=== PATIENT | female | born 1945 | race Caucasian/White ===

== ENCOUNTER 2018-12-14 00:13 | Day surgery (SDC) | payer MEDICARE, OTHER ==
[~2018-12-14 00:13] MED LIST: CETI5 PO; DOCU100 PO; FERR325 PO; FLUSAL5005 IH; LEVSOD125 PO; LISI20 PO; METF500 PO; NIFE30ER PO; OMEP40CA12 PO; OXYACE5T PO; RXONDA4ODT MM; RXTRAM50 PO; TIOT18 IH; TIOT18 INH; TRAM50 PO; WARF4 PO; ZITIA; ZOLAIR
[2018-12-14] MEDS ORDERED: Synthroid112 MCG PO (14:11)
[2018-12-14] MEDS ORDERED: METFORMIN HCL1000 MG PO (14:12)
[2018-12-14] MEDS ORDERED: Xolair150 MG SC (14:14)
[2018-12-14] MEDS ORDERED: GABA300 PO (14:16)
== END 2018-12-14 14:25 | disposition home or self-care (01) ==
LOC: ATC 00:13
DX: J44.9 Chronic obstructive pulmonary disease, unspecified (principal); Z87.891 Personal history of nicotine dependence; E78.5 Hyperlipidemia, unspecified; M19.90 Unspecified osteoarthritis, unspecified site; E03.9 Hypothyroidism, unspecified; G47.33 Obstructive sleep apnea (adult) (pediatric); Z79.899 Other long term (current) drug therapy; Z79.82 Long term (current) use of aspirin
CPT/HCPCS: 96372; J2357

== ENCOUNTER 2018-12-28 00:17 | Day surgery (SDC) | payer MEDICARE, OTHER ==
[~2018-12-28 00:17] MED LIST changes: +GABA300 PO; +METFORMIN HCL1000 MG PO; +Synthroid112 MCG PO; +Xolair150 MG SC
== END 2018-12-28 14:06 | disposition home or self-care (01) ==
LOC: ATC 00:17
DX: J44.9 Chronic obstructive pulmonary disease, unspecified (principal); G47.33 Obstructive sleep apnea (adult) (pediatric); E78.5 Hyperlipidemia, unspecified; E03.9 Hypothyroidism, unspecified; M19.90 Unspecified osteoarthritis, unspecified site; Z87.891 Personal history of nicotine dependence
CPT/HCPCS: 96372; J2357

== ENCOUNTER 2019-01-25 09:34 | Day surgery (SDC) | payer MEDICARE, OTHER | END 2019-01-25 23:59 | disposition home or self-care (01) | LOC: ATC 09:34 | DX: J44.9 Chronic obstructive pulmonary disease, unspecified (principal); G47.33 Obstructive sleep apnea (adult) (pediatric); E78.5 Hyperlipidemia, unspecified; E03.9 Hypothyroidism, unspecified; Z87.891 Personal history of nicotine dependence; Z99.89 Dependence on other enabling machines and devices; Z88.8 Allergy status to other drugs, medicaments and biological substances | CPT/HCPCS: 96372; J2357 ==

== ENCOUNTER 2019-02-08 00:07 | Day surgery (SDC) | payer MEDICARE, OTHER | END 2019-02-08 23:02 | disposition home or self-care (01) | LOC: ATC 00:07 | DX: J44.9 Chronic obstructive pulmonary disease, unspecified (principal); G47.33 Obstructive sleep apnea (adult) (pediatric); E03.9 Hypothyroidism, unspecified; E78.5 Hyperlipidemia, unspecified; Z87.891 Personal history of nicotine dependence; Z88.8 Allergy status to other drugs, medicaments and biological substances; Z79.899 Other long term (current) drug therapy; Z79.82 Long term (current) use of aspirin | CPT/HCPCS: 96372; J2357 ==

== ENCOUNTER 2019-02-22 13:27 | Day surgery (SDC) | payer MEDICARE, OTHER | END 2019-02-22 14:16 | disposition home or self-care (01) | LOC: ATC 13:27 | DX: J44.9 Chronic obstructive pulmonary disease, unspecified (principal); G47.33 Obstructive sleep apnea (adult) (pediatric); E78.5 Hyperlipidemia, unspecified; M19.90 Unspecified osteoarthritis, unspecified site; Z87.891 Personal history of nicotine dependence; Z88.8 Allergy status to other drugs, medicaments and biological substances | CPT/HCPCS: J2357 ==

== ENCOUNTER 2019-03-08 00:25 | Day surgery (SDC) | payer MEDICARE, OTHER | END 2019-03-08 11:50 | disposition home or self-care (01) | LOC: ATC 00:25 | DX: J44.9 Chronic obstructive pulmonary disease, unspecified (principal); G47.33 Obstructive sleep apnea (adult) (pediatric); E78.5 Hyperlipidemia, unspecified; E03.9 Hypothyroidism, unspecified; Z87.891 Personal history of nicotine dependence; Z99.89 Dependence on other enabling machines and devices; Z79.899 Other long term (current) drug therapy; Z79.84 Long term (current) use of oral hypoglycemic drugs; Z79.82 Long term (current) use of aspirin; Z88.8 Allergy status to other drugs, medicaments and biological substances | CPT/HCPCS: 96372; J2357 ==

== ENCOUNTER 2019-03-22 00:29 | Day surgery (SDC) | payer MEDICARE, OTHER ==
[2019-03-22] MEDS ORDERED: XOLAIR150 MG/1 M SL (09:38)
== END 2019-03-22 09:57 | disposition home or self-care (01) ==
LOC: ATC 00:29
DX: J44.9 Chronic obstructive pulmonary disease, unspecified (principal); E78.5 Hyperlipidemia, unspecified; J32.9 Chronic sinusitis, unspecified; Z87.891 Personal history of nicotine dependence; Z88.8 Allergy status to other drugs, medicaments and biological substances
CPT/HCPCS: 96372; J2357

== ENCOUNTER 2019-04-05 09:29 | Day surgery (SDC) | payer MEDICARE, OTHER ==
[~2019-04-05 09:29] MED LIST changes: +XOLAIR150 MG/1 M SL
== END 2019-04-05 09:52 | disposition home or self-care (01) ==
LOC: ATC 09:29
DX: J44.9 Chronic obstructive pulmonary disease, unspecified (principal); G47.33 Obstructive sleep apnea (adult) (pediatric); E78.5 Hyperlipidemia, unspecified; E03.9 Hypothyroidism, unspecified; Z87.891 Personal history of nicotine dependence; Z79.899 Other long term (current) drug therapy; Z79.84 Long term (current) use of oral hypoglycemic drugs; Z79.82 Long term (current) use of aspirin; Z88.8 Allergy status to other drugs, medicaments and biological substances
CPT/HCPCS: 96372; J2357

== ENCOUNTER 2019-04-25 00:12 | Day surgery (SDC) | payer MEDICARE, OTHER ==
[2019-04-25] MEDS ORDERED: MONT10T PO (11:59)
== END 2019-04-25 22:59 | disposition home or self-care (01) ==
LOC: ATC 00:12
DX: J44.9 Chronic obstructive pulmonary disease, unspecified (principal); E78.5 Hyperlipidemia, unspecified; J32.9 Chronic sinusitis, unspecified; M19.90 Unspecified osteoarthritis, unspecified site; E03.9 Hypothyroidism, unspecified; Z87.891 Personal history of nicotine dependence; Z88.8 Allergy status to other drugs, medicaments and biological substances
CPT/HCPCS: 96372; J2357

== ENCOUNTER → 2019-05-02 | Outpatient (CLI) | payer MEDICARE, OTHER ==
[~2019-05-02] MED LIST changes: +MONT10T PO
== END | disposition home or self-care (01) ==
LOC: LAB SHORT 19:19 → LAB EV 19:19
DX: N39.0 Urinary tract infection, site not specified (principal)
CPT/HCPCS: 87077; 87086; 87186

== ENCOUNTER 2019-05-09 00:11 | Day surgery (SDC) | payer MEDICARE, OTHER | END 2019-05-09 11:25 | disposition home or self-care (01) | LOC: ATC 00:11 | DX: J44.9 Chronic obstructive pulmonary disease, unspecified (principal); G47.30 Sleep apnea, unspecified; E78.5 Hyperlipidemia, unspecified; M19.90 Unspecified osteoarthritis, unspecified site; L93.0 Discoid lupus erythematosus; L40.9 Psoriasis, unspecified; E03.9 Hypothyroidism, unspecified; K75.81 Nonalcoholic steatohepatitis (NASH); R73.03 Prediabetes; Z87.891 Personal history of nicotine dependence; Z79.899 Other long term (current) drug therapy; Z79.84 Long term (current) use of oral hypoglycemic drugs; Z79.82 Long term (current) use of aspirin; Z88.8 Allergy status to other drugs, medicaments and biological substances | CPT/HCPCS: 96372; J2357 ==

== ENCOUNTER 2019-05-23 00:16 | Day surgery (SDC) | payer MEDICARE, OTHER | END 2019-05-23 11:24 | disposition home or self-care (01) | LOC: ATC 00:16 | DX: J44.9 Chronic obstructive pulmonary disease, unspecified (principal); E78.5 Hyperlipidemia, unspecified; J32.9 Chronic sinusitis, unspecified; Z87.891 Personal history of nicotine dependence | CPT/HCPCS: 96372; J2357 ==

== ENCOUNTER 2019-06-07 00:22 | Day surgery (SDC) | payer MEDICARE, OTHER ==
--- NOTE | 2019-06-12 11:35 | NUR ---
LATE ENTRY. VS WERE CHECKED, WNL, NOT DOCUMENTED. PT TOLERATED INJECTION WELL.
== END 2019-06-07 11:35 | disposition home or self-care (01) ==
LOC: ATC 00:22
DX: J44.9 Chronic obstructive pulmonary disease, unspecified (principal); G47.33 Obstructive sleep apnea (adult) (pediatric); E78.5 Hyperlipidemia, unspecified; E03.9 Hypothyroidism, unspecified; Z99.89 Dependence on other enabling machines and devices; Z87.891 Personal history of nicotine dependence; Z79.51 Long term (current) use of inhaled steroids; Z79.84 Long term (current) use of oral hypoglycemic drugs; Z79.82 Long term (current) use of aspirin; Z79.899 Other long term (current) drug therapy; Z88.8 Allergy status to other drugs, medicaments and biological substances
CPT/HCPCS: 96372; J2357

== ENCOUNTER 2019-06-21 00:17 | Day surgery (SDC) | payer MEDICARE, OTHER | END 2019-06-21 11:07 | disposition home or self-care (01) | LOC: ATC 00:17 | DX: J44.9 Chronic obstructive pulmonary disease, unspecified (principal); Z87.891 Personal history of nicotine dependence | CPT/HCPCS: 96372; J2357 ==

== ENCOUNTER 2019-07-04 00:21 | Day surgery (SDC) | payer MEDICARE, OTHER | END 2019-07-04 10:24 | disposition home or self-care (01) | LOC: ATC 00:21 | DX: J44.9 Chronic obstructive pulmonary disease, unspecified (principal); R73.03 Prediabetes; E78.5 Hyperlipidemia, unspecified; E03.9 Hypothyroidism, unspecified; G47.33 Obstructive sleep apnea (adult) (pediatric); Z99.89 Dependence on other enabling machines and devices; Z88.8 Allergy status to other drugs, medicaments and biological substances; Z87.891 Personal history of nicotine dependence; Z79.899 Other long term (current) drug therapy; Z79.84 Long term (current) use of oral hypoglycemic drugs; Z79.82 Long term (current) use of aspirin; Z79.51 Long term (current) use of inhaled steroids | CPT/HCPCS: 96372; J2357 ==

== ENCOUNTER 2019-07-18 00:08 | Day surgery (SDC) | payer MEDICARE, OTHER | END 2019-07-18 11:18 | disposition home or self-care (01) | LOC: ATC 00:08 | DX: J44.9 Chronic obstructive pulmonary disease, unspecified (principal); G47.33 Obstructive sleep apnea (adult) (pediatric); R73.03 Prediabetes; E03.9 Hypothyroidism, unspecified; E78.5 Hyperlipidemia, unspecified; Z87.891 Personal history of nicotine dependence; Z99.89 Dependence on other enabling machines and devices; Z79.52 Long term (current) use of systemic steroids; Z79.899 Other long term (current) drug therapy; Z79.82 Long term (current) use of aspirin; Z79.84 Long term (current) use of oral hypoglycemic drugs; Z88.8 Allergy status to other drugs, medicaments and biological substances | CPT/HCPCS: 96372; J2357 ==

== ENCOUNTER 2019-08-01 00:08 | Day surgery (SDC) | payer MEDICARE, OTHER | END 2019-08-01 11:37 | disposition home or self-care (01) | LOC: ATC 00:08 | DX: J44.9 Chronic obstructive pulmonary disease, unspecified (principal); E03.9 Hypothyroidism, unspecified; E78.5 Hyperlipidemia, unspecified; R73.03 Prediabetes; G47.33 Obstructive sleep apnea (adult) (pediatric); Z87.891 Personal history of nicotine dependence; Z99.89 Dependence on other enabling machines and devices; Z88.8 Allergy status to other drugs, medicaments and biological substances; Z79.899 Other long term (current) drug therapy; Z79.82 Long term (current) use of aspirin; Z79.84 Long term (current) use of oral hypoglycemic drugs | CPT/HCPCS: 96372; J2357 ==

== ENCOUNTER 2019-08-15 00:12 | Day surgery (SDC) | payer MEDICARE, OTHER | END 2019-08-15 10:52 | disposition home or self-care (01) | LOC: ATC 00:12 | DX: J44.9 Chronic obstructive pulmonary disease, unspecified (principal); G47.33 Obstructive sleep apnea (adult) (pediatric); E78.5 Hyperlipidemia, unspecified; M19.90 Unspecified osteoarthritis, unspecified site; E03.9 Hypothyroidism, unspecified; R73.03 Prediabetes; L93.0 Discoid lupus erythematosus; Z88.8 Allergy status to other drugs, medicaments and biological substances; Z87.891 Personal history of nicotine dependence; Z99.89 Dependence on other enabling machines and devices; Z79.51 Long term (current) use of inhaled steroids; Z79.84 Long term (current) use of oral hypoglycemic drugs; Z79.899 Other long term (current) drug therapy | CPT/HCPCS: 96372; J2357 ==

== ENCOUNTER 2019-08-29 00:29 | Day surgery (SDC) | payer MEDICARE, OTHER | END 2019-08-29 11:23 | disposition home or self-care (01) | LOC: ATC 00:29 | DX: J44.9 Chronic obstructive pulmonary disease, unspecified (principal); G47.33 Obstructive sleep apnea (adult) (pediatric); I10 Essential (primary) hypertension; R73.03 Prediabetes; E78.5 Hyperlipidemia, unspecified; M19.90 Unspecified osteoarthritis, unspecified site; E03.9 Hypothyroidism, unspecified; L93.0 Discoid lupus erythematosus; Z87.891 Personal history of nicotine dependence; Z99.89 Dependence on other enabling machines and devices; Z79.84 Long term (current) use of oral hypoglycemic drugs; Z79.82 Long term (current) use of aspirin; Z79.51 Long term (current) use of inhaled steroids; Z79.899 Other long term (current) drug therapy; Z88.8 Allergy status to other drugs, medicaments and biological substances | CPT/HCPCS: J2357 ==

== ENCOUNTER 2019-09-12 07:10 | Day surgery (SDC) | payer MEDICARE, OTHER | END 2019-09-12 11:23 | disposition home or self-care (01) | LOC: ATC 07:10 | DX: J44.9 Chronic obstructive pulmonary disease, unspecified (principal); G47.33 Obstructive sleep apnea (adult) (pediatric); E78.5 Hyperlipidemia, unspecified; Z87.891 Personal history of nicotine dependence; Z99.89 Dependence on other enabling machines and devices; Z79.51 Long term (current) use of inhaled steroids; Z79.899 Other long term (current) drug therapy; Z88.8 Allergy status to other drugs, medicaments and biological substances | CPT/HCPCS: 96372; J2357 ==

== ENCOUNTER 2019-09-26 00:06 | Day surgery (SDC) | payer MEDICARE, OTHER | END 2019-09-26 11:18 | disposition home or self-care (01) | LOC: ATC 00:06 | DX: J44.9 Chronic obstructive pulmonary disease, unspecified (principal); G47.33 Obstructive sleep apnea (adult) (pediatric); E78.5 Hyperlipidemia, unspecified; M19.90 Unspecified osteoarthritis, unspecified site; E03.9 Hypothyroidism, unspecified; R73.03 Prediabetes; Z87.891 Personal history of nicotine dependence; Z79.51 Long term (current) use of inhaled steroids; Z79.84 Long term (current) use of oral hypoglycemic drugs; Z79.82 Long term (current) use of aspirin; Z79.52 Long term (current) use of systemic steroids; Z79.899 Other long term (current) drug therapy; Z99.89 Dependence on other enabling machines and devices; Z90.710 Acquired absence of both cervix and uterus; Z88.8 Allergy status to other drugs, medicaments and biological substances | CPT/HCPCS: 96372; J2357 ==

== ENCOUNTER 2019-10-10 00:08 | Day surgery (SDC) | payer MEDICARE, OTHER | END 2019-10-10 11:02 | disposition home or self-care (01) | LOC: ATC 00:08 | DX: J44.9 Chronic obstructive pulmonary disease, unspecified (principal); E78.5 Hyperlipidemia, unspecified; E03.9 Hypothyroidism, unspecified; G47.33 Obstructive sleep apnea (adult) (pediatric); Z79.51 Long term (current) use of inhaled steroids; Z87.891 Personal history of nicotine dependence; Z79.52 Long term (current) use of systemic steroids; Z88.8 Allergy status to other drugs, medicaments and biological substances | CPT/HCPCS: 96372; J2357 ==

== ENCOUNTER 2019-10-24 00:11 | Day surgery (SDC) | payer MEDICARE, OTHER | END 2019-10-24 11:23 | disposition home or self-care (01) | LOC: ATC 00:11 | DX: J44.9 Chronic obstructive pulmonary disease, unspecified (principal); G47.33 Obstructive sleep apnea (adult) (pediatric); I10 Essential (primary) hypertension; E78.5 Hyperlipidemia, unspecified; M19.90 Unspecified osteoarthritis, unspecified site; E03.9 Hypothyroidism, unspecified; K75.81 Nonalcoholic steatohepatitis (NASH); R73.03 Prediabetes; K21.9 Gastro-esophageal reflux disease without esophagitis; L40.8 Other psoriasis; Z87.891 Personal history of nicotine dependence; Z79.51 Long term (current) use of inhaled steroids; Z79.52 Long term (current) use of systemic steroids; Z79.82 Long term (current) use of aspirin; Z79.84 Long term (current) use of oral hypoglycemic drugs; Z79.899 Other long term (current) drug therapy; Z88.8 Allergy status to other drugs, medicaments and biological substances | CPT/HCPCS: 96372; J2357 ==

== ENCOUNTER 2019-11-21 00:05 | Day surgery (SDC) | payer MEDICARE, OTHER | END 2019-11-21 11:16 | disposition home or self-care (01) | LOC: ATC 00:05 | DX: J44.9 Chronic obstructive pulmonary disease, unspecified (principal); I10 Essential (primary) hypertension; E78.5 Hyperlipidemia, unspecified; E03.9 Hypothyroidism, unspecified; Z87.891 Personal history of nicotine dependence; Z79.51 Long term (current) use of inhaled steroids; Z79.52 Long term (current) use of systemic steroids; E66.3 Overweight; K21.9 Gastro-esophageal reflux disease without esophagitis; Z79.899 Other long term (current) drug therapy; Z68.30 Body mass index [BMI] 30.0-30.9, adult | CPT/HCPCS: 96372; J2357 ==

== ENCOUNTER 2019-12-05 00:15 | Day surgery (SDC) | payer MEDICARE, OTHER | END 2019-12-05 11:07 | disposition home or self-care (01) | LOC: ATC 00:15 | DX: J44.9 Chronic obstructive pulmonary disease, unspecified (principal); I10 Essential (primary) hypertension; G47.33 Obstructive sleep apnea (adult) (pediatric); E78.5 Hyperlipidemia, unspecified; E03.9 Hypothyroidism, unspecified; K21.9 Gastro-esophageal reflux disease without esophagitis; Z87.891 Personal history of nicotine dependence; Z79.51 Long term (current) use of inhaled steroids; Z79.899 Other long term (current) drug therapy; Z88.8 Allergy status to other drugs, medicaments and biological substances | CPT/HCPCS: J2357 ==

== ENCOUNTER 2019-12-19 00:09 | Day surgery (SDC) | payer MEDICARE, OTHER | END 2019-12-19 11:07 | disposition home or self-care (01) | LOC: ATC 00:09 | DX: J44.9 Chronic obstructive pulmonary disease, unspecified (principal); G47.33 Obstructive sleep apnea (adult) (pediatric); I10 Essential (primary) hypertension; E78.5 Hyperlipidemia, unspecified; J32.9 Chronic sinusitis, unspecified; E03.9 Hypothyroidism, unspecified; Z87.891 Personal history of nicotine dependence; Z88.8 Allergy status to other drugs, medicaments and biological substances | CPT/HCPCS: 96372; J2357 ==

== ENCOUNTER 2020-01-02 00:40 | Day surgery (SDC) | payer MEDICARE, OTHER | END 2020-01-02 09:45 | disposition home or self-care (01) | LOC: ATC 00:40 | DX: J44.9 Chronic obstructive pulmonary disease, unspecified (principal); K21.9 Gastro-esophageal reflux disease without esophagitis; I10 Essential (primary) hypertension; E03.9 Hypothyroidism, unspecified; E66.3 Overweight; Z79.51 Long term (current) use of inhaled steroids; Z87.891 Personal history of nicotine dependence; Z99.89 Dependence on other enabling machines and devices; Z79.899 Other long term (current) drug therapy; Z88.8 Allergy status to other drugs, medicaments and biological substances; Z68.30 Body mass index [BMI] 30.0-30.9, adult | CPT/HCPCS: J2357 ==

== ENCOUNTER 2020-01-16 01:07 | Day surgery (SDC) | payer MEDICARE, OTHER | END 2020-01-16 10:33 | disposition home or self-care (01) | LOC: ATC 01:07 | DX: J44.9 Chronic obstructive pulmonary disease, unspecified (principal); K21.9 Gastro-esophageal reflux disease without esophagitis; Z79.899 Other long term (current) drug therapy; Z79.51 Long term (current) use of inhaled steroids; Z87.891 Personal history of nicotine dependence; E66.3 Overweight; G47.33 Obstructive sleep apnea (adult) (pediatric); Z68.30 Body mass index [BMI] 30.0-30.9, adult | CPT/HCPCS: J2357 ==

== ENCOUNTER 2020-01-30 00:03 | Day surgery (SDC) | payer MEDICARE, OTHER | END 2020-01-30 10:04 | disposition home or self-care (01) | LOC: ATC 00:03 | DX: J44.9 Chronic obstructive pulmonary disease, unspecified (principal); K21.9 Gastro-esophageal reflux disease without esophagitis; Z79.51 Long term (current) use of inhaled steroids; I10 Essential (primary) hypertension; E78.5 Hyperlipidemia, unspecified; E03.9 Hypothyroidism, unspecified; Z79.899 Other long term (current) drug therapy; Z87.891 Personal history of nicotine dependence; E66.3 Overweight; Z68.30 Body mass index [BMI] 30.0-30.9, adult | CPT/HCPCS: J2357 ==

== ENCOUNTER 2020-02-13 00:19 | Day surgery (SDC) | payer MEDICARE, OTHER | END 2020-02-13 10:52 | disposition home or self-care (01) | LOC: ATC 00:19 | DX: J44.9 Chronic obstructive pulmonary disease, unspecified (principal); K21.9 Gastro-esophageal reflux disease without esophagitis; E78.5 Hyperlipidemia, unspecified; E03.9 Hypothyroidism, unspecified; I10 Essential (primary) hypertension; E66.3 Overweight; Z68.30 Body mass index [BMI] 30.0-30.9, adult; Z87.891 Personal history of nicotine dependence; Z88.8 Allergy status to other drugs, medicaments and biological substances; Z79.899 Other long term (current) drug therapy; Z79.51 Long term (current) use of inhaled steroids | CPT/HCPCS: J2357 ==

== ENCOUNTER 2020-03-12 00:22 | Day surgery (SDC) | payer MEDICARE, OTHER | END 2020-03-12 10:59 | disposition home or self-care (01) | LOC: ATC 00:22 | DX: J44.9 Chronic obstructive pulmonary disease, unspecified (principal); I10 Essential (primary) hypertension; E78.5 Hyperlipidemia, unspecified; M19.90 Unspecified osteoarthritis, unspecified site; E03.9 Hypothyroidism, unspecified; Z79.899 Other long term (current) drug therapy | CPT/HCPCS: 96372; J2357 ==

== ENCOUNTER 2020-03-26 00:06 | Day surgery (SDC) | payer MEDICARE, OTHER | END 2020-03-26 10:48 | disposition home or self-care (01) | LOC: ATC 00:06 | DX: J44.9 Chronic obstructive pulmonary disease, unspecified (principal); I10 Essential (primary) hypertension; E03.9 Hypothyroidism, unspecified; E78.5 Hyperlipidemia, unspecified; E66.3 Overweight; K21.9 Gastro-esophageal reflux disease without esophagitis; G47.33 Obstructive sleep apnea (adult) (pediatric); Z87.891 Personal history of nicotine dependence; Z68.30 Body mass index [BMI] 30.0-30.9, adult; Z79.899 Other long term (current) drug therapy | CPT/HCPCS: 96372; J2357 ==

== ENCOUNTER 2020-04-16 00:08 | Day surgery (SDC) | payer MEDICARE, OTHER | END 2020-04-16 10:53 | disposition home or self-care (01) | LOC: ATC 00:08 | DX: J44.9 Chronic obstructive pulmonary disease, unspecified (principal); E11.621 Type 2 diabetes mellitus with foot ulcer; K21.9 Gastro-esophageal reflux disease without esophagitis; I10 Essential (primary) hypertension; E78.5 Hyperlipidemia, unspecified; E66.3 Overweight; G47.33 Obstructive sleep apnea (adult) (pediatric); Z87.891 Personal history of nicotine dependence; Z68.30 Body mass index [BMI] 30.0-30.9, adult; Z79.899 Other long term (current) drug therapy; Z79.82 Long term (current) use of aspirin; Z79.51 Long term (current) use of inhaled steroids; L97.509 Non-pressure chronic ulcer of other part of unspecified foot with unspecified severity | CPT/HCPCS: 96372; J2357 ==

== ENCOUNTER 2020-06-11 08:42 | Day surgery (SDC) | payer MEDICARE, OTHER ==
[~2020-06-11 08:42] MED LIST changes: -FLUSAL5005 IH; +FLUT1DIS8 INH; +OMEP20ER PO; -OMEP40CA12 PO
== END 2020-06-11 09:21 | disposition home or self-care (01) ==
LOC: ATC 08:42
DX: J44.9 Chronic obstructive pulmonary disease, unspecified (principal); J45.50 Severe persistent asthma, uncomplicated; K21.9 Gastro-esophageal reflux disease without esophagitis; I10 Essential (primary) hypertension; E78.5 Hyperlipidemia, unspecified; E03.9 Hypothyroidism, unspecified; G47.33 Obstructive sleep apnea (adult) (pediatric); Z79.899 Other long term (current) drug therapy; Z87.891 Personal history of nicotine dependence; Z79.82 Long term (current) use of aspirin
CPT/HCPCS: 96372; J2357

== ENCOUNTER 2020-06-25 00:40 | Day surgery (SDC) | payer MEDICARE, OTHER | END 2020-06-25 10:59 | disposition home or self-care (01) | LOC: ATC 00:40 | DX: J45.50 Severe persistent asthma, uncomplicated (principal); K21.9 Gastro-esophageal reflux disease without esophagitis; I10 Essential (primary) hypertension; E78.5 Hyperlipidemia, unspecified; E03.9 Hypothyroidism, unspecified; J44.9 Chronic obstructive pulmonary disease, unspecified; Z87.891 Personal history of nicotine dependence; Z88.8 Allergy status to other drugs, medicaments and biological substances | CPT/HCPCS: 96372; J2357 ==

== ENCOUNTER 2020-07-09 00:13 | Day surgery (SDC) | payer MEDICARE, OTHER | END 2020-07-09 10:15 | disposition home or self-care (01) | LOC: ATC 00:13 | DX: J45.50 Severe persistent asthma, uncomplicated (principal); J44.9 Chronic obstructive pulmonary disease, unspecified; I10 Essential (primary) hypertension; E78.5 Hyperlipidemia, unspecified; E03.9 Hypothyroidism, unspecified; Z87.891 Personal history of nicotine dependence; K21.9 Gastro-esophageal reflux disease without esophagitis; Z79.899 Other long term (current) drug therapy; Z79.82 Long term (current) use of aspirin | CPT/HCPCS: 96372; J1100; J1885; J2250; J2357; J2405; J2704; J3010 ==

== ENCOUNTER 2020-07-31 00:21 | Day surgery (SDC) | payer MEDICARE, OTHER | END 2020-07-31 10:00 | disposition home or self-care (01) | LOC: ATC 00:21 | DX: J45.50 Severe persistent asthma, uncomplicated (principal); J44.9 Chronic obstructive pulmonary disease, unspecified; K21.9 Gastro-esophageal reflux disease without esophagitis; G47.33 Obstructive sleep apnea (adult) (pediatric); M19.90 Unspecified osteoarthritis, unspecified site; L93.0 Discoid lupus erythematosus; L40.9 Psoriasis, unspecified; E03.9 Hypothyroidism, unspecified; R73.03 Prediabetes; E66.3 Overweight; Z68.29 Body mass index [BMI] 29.0-29.9, adult; Z79.51 Long term (current) use of inhaled steroids; Z79.899 Other long term (current) drug therapy; Z87.891 Personal history of nicotine dependence; Z88.8 Allergy status to other drugs, medicaments and biological substances | CPT/HCPCS: 96372; J2357 ==

== ENCOUNTER 2020-08-14 00:26 | Day surgery (SDC) | payer MEDICARE, OTHER | END 2020-08-14 10:41 | disposition home or self-care (01) | LOC: ATC 00:26 | DX: J45.50 Severe persistent asthma, uncomplicated (principal); J44.9 Chronic obstructive pulmonary disease, unspecified; I10 Essential (primary) hypertension; E78.5 Hyperlipidemia, unspecified; Z87.891 Personal history of nicotine dependence; Z79.899 Other long term (current) drug therapy; Z88.8 Allergy status to other drugs, medicaments and biological substances | CPT/HCPCS: 96372; J2357 ==

== ENCOUNTER 2020-09-11 00:19 | Day surgery (SDC) | payer MEDICARE, OTHER ==
[2020-09-11] MEDS ORDERED: Prinivil10 MG PO (10:14)
== END 2020-09-11 10:08 | disposition home or self-care (01) ==
LOC: ATC 00:19
DX: J44.9 Chronic obstructive pulmonary disease, unspecified (principal); J45.50 Severe persistent asthma, uncomplicated; K21.9 Gastro-esophageal reflux disease without esophagitis; M19.90 Unspecified osteoarthritis, unspecified site; E03.9 Hypothyroidism, unspecified; R73.03 Prediabetes; E78.5 Hyperlipidemia, unspecified; I10 Essential (primary) hypertension; G47.33 Obstructive sleep apnea (adult) (pediatric); E66.3 Overweight; Z68.29 Body mass index [BMI] 29.0-29.9, adult; Z87.81 Personal history of (healed) traumatic fracture; Z79.899 Other long term (current) drug therapy; Z88.8 Allergy status to other drugs, medicaments and biological substances; Z79.51 Long term (current) use of inhaled steroids
CPT/HCPCS: 96372; J2357

== ENCOUNTER 2020-09-25 00:07 | Day surgery (SDC) | payer MEDICARE, OTHER ==
[~2020-09-25 00:07] MED LIST changes: +Prinivil10 MG PO
== END 2020-09-25 10:36 | disposition home or self-care (01) ==
LOC: ATC 00:07
DX: J44.9 Chronic obstructive pulmonary disease, unspecified (principal); J45.50 Severe persistent asthma, uncomplicated; G47.33 Obstructive sleep apnea (adult) (pediatric); K21.9 Gastro-esophageal reflux disease without esophagitis; I10 Essential (primary) hypertension; E78.5 Hyperlipidemia, unspecified; M19.90 Unspecified osteoarthritis, unspecified site; E03.9 Hypothyroidism, unspecified; Z87.891 Personal history of nicotine dependence; Z88.8 Allergy status to other drugs, medicaments and biological substances
CPT/HCPCS: 96372; J2357

== ENCOUNTER 2020-10-09 00:25 | Day surgery (SDC) | payer MEDICARE, OTHER | END 2020-10-09 10:04 | disposition home or self-care (01) | LOC: ATC 00:25 | DX: J45.50 Severe persistent asthma, uncomplicated (principal); J44.9 Chronic obstructive pulmonary disease, unspecified; K21.9 Gastro-esophageal reflux disease without esophagitis; I10 Essential (primary) hypertension; E78.5 Hyperlipidemia, unspecified; J32.9 Chronic sinusitis, unspecified; M19.90 Unspecified osteoarthritis, unspecified site; E03.9 Hypothyroidism, unspecified; R73.03 Prediabetes; L93.0 Discoid lupus erythematosus; L40.9 Psoriasis, unspecified; G47.33 Obstructive sleep apnea (adult) (pediatric); E66.3 Overweight; Z68.29 Body mass index [BMI] 29.0-29.9, adult; Z79.899 Other long term (current) drug therapy; Z87.891 Personal history of nicotine dependence; Z88.8 Allergy status to other drugs, medicaments and biological substances; Z79.51 Long term (current) use of inhaled steroids | CPT/HCPCS: J2357 ==

== ENCOUNTER 2020-10-23 00:13 | Day surgery (SDC) | payer MEDICARE, OTHER ==
[~2020-10-23 00:13] MED LIST changes: +EUTHYROX88 MCG PO; -Synthroid112 MCG PO
== END 2020-10-23 10:28 | disposition home or self-care (01) ==
LOC: ATC 00:13
DX: J45.50 Severe persistent asthma, uncomplicated (principal); I10 Essential (primary) hypertension; E78.5 Hyperlipidemia, unspecified; M19.90 Unspecified osteoarthritis, unspecified site; E03.9 Hypothyroidism, unspecified; J44.9 Chronic obstructive pulmonary disease, unspecified; K21.9 Gastro-esophageal reflux disease without esophagitis; G47.33 Obstructive sleep apnea (adult) (pediatric); Z87.891 Personal history of nicotine dependence; Z88.8 Allergy status to other drugs, medicaments and biological substances; Z79.899 Other long term (current) drug therapy
CPT/HCPCS: 96372; J2357

== ENCOUNTER 2020-11-06 00:05 | Day surgery (SDC) | payer MEDICARE, OTHER | END 2020-11-06 10:21 | disposition home or self-care (01) | LOC: ATC 00:05 | DX: J44.9 Chronic obstructive pulmonary disease, unspecified (principal); J45.50 Severe persistent asthma, uncomplicated; I10 Essential (primary) hypertension; E78.5 Hyperlipidemia, unspecified; L93.0 Discoid lupus erythematosus; L40.8 Other psoriasis; G47.33 Obstructive sleep apnea (adult) (pediatric); E03.9 Hypothyroidism, unspecified; Z88.8 Allergy status to other drugs, medicaments and biological substances; Z87.891 Personal history of nicotine dependence | CPT/HCPCS: 96372; J2357 ==

== ENCOUNTER 2020-11-27 00:28 | Day surgery (SDC) | payer MEDICARE, OTHER | END 2020-11-27 10:16 | disposition home or self-care (01) | LOC: ATC 00:28 | DX: J44.9 Chronic obstructive pulmonary disease, unspecified (principal); J45.50 Severe persistent asthma, uncomplicated; I10 Essential (primary) hypertension; Z87.891 Personal history of nicotine dependence | CPT/HCPCS: 96372; J2357 ==

== ENCOUNTER 2020-12-11 00:05 | Day surgery (SDC) | payer MEDICARE, OTHER | END 2020-12-11 11:25 | disposition home or self-care (01) | LOC: ATC 00:05 | DX: J44.9 Chronic obstructive pulmonary disease, unspecified (principal); J45.50 Severe persistent asthma, uncomplicated; I10 Essential (primary) hypertension; Z87.891 Personal history of nicotine dependence | CPT/HCPCS: 96372; J2357 ==

== ENCOUNTER 2020-12-25 00:37 | Day surgery (SDC) | payer MEDICARE, OTHER | END 2020-12-25 11:15 | disposition home or self-care (01) | LOC: ATC 00:37 | DX: J45.50 Severe persistent asthma, uncomplicated (principal); J44.9 Chronic obstructive pulmonary disease, unspecified; I10 Essential (primary) hypertension; E78.5 Hyperlipidemia, unspecified; E03.9 Hypothyroidism, unspecified; R73.03 Prediabetes; K21.9 Gastro-esophageal reflux disease without esophagitis; Z87.891 Personal history of nicotine dependence; Z88.8 Allergy status to other drugs, medicaments and biological substances | CPT/HCPCS: 96372; J2357 ==

== ENCOUNTER 2021-01-08 00:14 | Day surgery (SDC) | payer MEDICARE, OTHER | END 2021-01-08 10:35 | disposition home or self-care (01) | LOC: ATC 00:14 | DX: J44.9 Chronic obstructive pulmonary disease, unspecified (principal); J45.50 Severe persistent asthma, uncomplicated; I10 Essential (primary) hypertension; L93.0 Discoid lupus erythematosus; E03.9 Hypothyroidism, unspecified; Z96.651 Presence of right artificial knee joint; Z87.891 Personal history of nicotine dependence; Z79.51 Long term (current) use of inhaled steroids; Z79.899 Other long term (current) drug therapy; Z88.8 Allergy status to other drugs, medicaments and biological substances | CPT/HCPCS: 96372; J2357 ==

== ENCOUNTER 2021-01-22 00:28 | Day surgery (SDC) | payer MEDICARE, OTHER ==
[~2021-01-22 00:28] MED LIST changes: -EUTHYROX88 MCG PO; +Synthroid112 MCG PO
[2021-01-22] MEDS ORDERED: GABA300 PO (10:18)
== END 2021-01-22 09:58 | disposition home or self-care (01) ==
LOC: ATC 00:28
DX: J45.50 Severe persistent asthma, uncomplicated (principal); K21.9 Gastro-esophageal reflux disease without esophagitis; G47.33 Obstructive sleep apnea (adult) (pediatric); J44.9 Chronic obstructive pulmonary disease, unspecified; I10 Essential (primary) hypertension; E78.5 Hyperlipidemia, unspecified; M19.90 Unspecified osteoarthritis, unspecified site; L93.0 Discoid lupus erythematosus; E03.9 Hypothyroidism, unspecified; Z87.440 Personal history of urinary (tract) infections; Z87.891 Personal history of nicotine dependence; Z88.8 Allergy status to other drugs, medicaments and biological substances
CPT/HCPCS: 96372; J2357

== ENCOUNTER 2021-02-20 03:29 | Day surgery (SDC) | payer MEDICARE, OTHER ==
[~2021-02-20 03:29] MED LIST changes: +EUTHYROX88 MCG PO; -Synthroid112 MCG PO
== END 2021-02-20 10:05 | disposition home or self-care (01) ==
LOC: ATC 03:29
DX: J44.9 Chronic obstructive pulmonary disease, unspecified (principal); J45.50 Severe persistent asthma, uncomplicated; I10 Essential (primary) hypertension; Z87.891 Personal history of nicotine dependence; Z88.8 Allergy status to other drugs, medicaments and biological substances; E03.9 Hypothyroidism, unspecified
CPT/HCPCS: 96372; J2357

== ENCOUNTER 2021-02-28 11:59 | Emergency (ER) | payer MEDICARE, OTHER ==
[~2021-02-28] VITALS: Ht 154.9 cm; Wt 80.3 kg
[2021-02-28] MEDS ORDERED: EZETIMIBE10 M6 PO (12:42)
[2021-02-28] MEDS ORDERED: METFORMIN HCL500 M3 PO (12:44)
[2021-02-28] MEDS ORDERED: CEPH500 PO (13:55)
== END 2021-02-28 14:20 | disposition home or self-care (01) ==
LOC: ER 11:59
DX: M79.89 Other specified soft tissue disorders (principal); R60.0 Localized edema; E11.9 Type 2 diabetes mellitus without complications; I10 Essential (primary) hypertension; Z88.8 Allergy status to other drugs, medicaments and biological substances; Z79.899 Other long term (current) drug therapy
CPT/HCPCS: 71260; 80053; 83880; 84484; 85025; 93005; 93010; 93971; 99285-25; Q9967

== ENCOUNTER 2021-03-05 04:58 | Day surgery (SDC) | payer MEDICARE, OTHER ==
[~2021-03-05 04:58] MED LIST changes: +CEPH500 PO; +EZETIMIBE10 M6 PO; +METFORMIN HCL500 M3 PO
== END 2021-03-05 09:45 | disposition home or self-care (01) ==
LOC: ATC 04:58
DX: J45.50 Severe persistent asthma, uncomplicated (principal); I10 Essential (primary) hypertension; E78.5 Hyperlipidemia, unspecified; E03.9 Hypothyroidism, unspecified; J44.9 Chronic obstructive pulmonary disease, unspecified; Z87.891 Personal history of nicotine dependence; Z88.8 Allergy status to other drugs, medicaments and biological substances
CPT/HCPCS: 96372; J2357

== ENCOUNTER 2021-03-19 00:08 | Day surgery (SDC) | payer MEDICARE, OTHER | END 2021-03-19 10:30 | disposition home or self-care (01) | LOC: ATC 00:08 | DX: J45.50 Severe persistent asthma, uncomplicated (principal); J44.9 Chronic obstructive pulmonary disease, unspecified; K21.9 Gastro-esophageal reflux disease without esophagitis; M19.90 Unspecified osteoarthritis, unspecified site; L93.0 Discoid lupus erythematosus; L40.9 Psoriasis, unspecified; Z87.891 Personal history of nicotine dependence | CPT/HCPCS: 96372; J2357 ==

== ENCOUNTER 2021-04-01 00:21 | Day surgery (SDC) | payer MEDICARE, OTHER | END 2021-04-01 10:24 | disposition home or self-care (01) | LOC: ATC 00:21 | DX: J44.9 Chronic obstructive pulmonary disease, unspecified (principal); J45.50 Severe persistent asthma, uncomplicated; I10 Essential (primary) hypertension; Z87.891 Personal history of nicotine dependence; Z88.8 Allergy status to other drugs, medicaments and biological substances | CPT/HCPCS: 96372; J2357 ==

== ENCOUNTER 2021-04-15 00:11 | Day surgery (SDC) | payer MEDICARE, OTHER | END 2021-04-15 09:59 | disposition home or self-care (01) | LOC: ATC 00:11 | DX: J45.50 Severe persistent asthma, uncomplicated (principal); J44.9 Chronic obstructive pulmonary disease, unspecified; G47.33 Obstructive sleep apnea (adult) (pediatric); K21.9 Gastro-esophageal reflux disease without esophagitis; I10 Essential (primary) hypertension; E78.5 Hyperlipidemia, unspecified; E03.9 Hypothyroidism, unspecified; Z87.891 Personal history of nicotine dependence; Z79.82 Long term (current) use of aspirin | CPT/HCPCS: J2357 ==

== ENCOUNTER 2021-05-14 01:37 | Day surgery (SDC) | payer MEDICARE, OTHER ==
[2021-05-14] MEDS ORDERED: XOLAIR150 MG/1 M SC (10:02)
[2021-05-14] MEDS ORDERED: Xolair150 MG SC (10:03)
== END 2021-05-14 10:00 | disposition home or self-care (01) ==
LOC: ATC 01:37
DX: J44.9 Chronic obstructive pulmonary disease, unspecified (principal); J45.50 Severe persistent asthma, uncomplicated; G47.33 Obstructive sleep apnea (adult) (pediatric); Z87.891 Personal history of nicotine dependence; K21.9 Gastro-esophageal reflux disease without esophagitis; Z79.82 Long term (current) use of aspirin
CPT/HCPCS: 96372; J2357

== ENCOUNTER 2021-05-29 00:19 | Day surgery (SDC) | payer MEDICARE, OTHER ==
[~2021-05-29 00:19] MED LIST changes: +XOLAIR150 MG/1 M SC
== END 2021-05-29 09:47 | disposition home or self-care (01) ==
LOC: ATC 00:19
DX: J45.50 Severe persistent asthma, uncomplicated (principal); G47.33 Obstructive sleep apnea (adult) (pediatric); J44.9 Chronic obstructive pulmonary disease, unspecified; K21.9 Gastro-esophageal reflux disease without esophagitis; Z87.891 Personal history of nicotine dependence; Z79.82 Long term (current) use of aspirin; Z79.899 Other long term (current) drug therapy
CPT/HCPCS: 96372; J2357

== ENCOUNTER 2021-06-12 02:06 | Day surgery (SDC) | payer MEDICARE, OTHER | END 2021-06-12 08:38 | disposition home or self-care (01) | LOC: ATC 02:06 | DX: J44.9 Chronic obstructive pulmonary disease, unspecified (principal); J45.50 Severe persistent asthma, uncomplicated; G47.33 Obstructive sleep apnea (adult) (pediatric); Z87.891 Personal history of nicotine dependence | CPT/HCPCS: 96372; J2357 ==

== ENCOUNTER 2021-06-26 00:49 | Day surgery (SDC) | payer MEDICARE, OTHER | END 2021-06-26 09:58 | disposition home or self-care (01) | LOC: ATC 00:49 | DX: J45.50 Severe persistent asthma, uncomplicated (principal) | CPT/HCPCS: 96372; J2357 ==

== ENCOUNTER 2021-07-10 02:20 | Day surgery (SDC) | payer MEDICARE, OTHER | END 2021-07-10 10:16 | disposition home or self-care (01) | LOC: ATC 02:20 | DX: J45.50 Severe persistent asthma, uncomplicated (principal); G47.33 Obstructive sleep apnea (adult) (pediatric); Z87.891 Personal history of nicotine dependence | CPT/HCPCS: 96372; J2357 ==

== ENCOUNTER 2021-07-24 04:20 | Day surgery (SDC) | payer MEDICARE, OTHER | END 2021-07-24 10:06 | disposition home or self-care (01) | LOC: ATC 04:20 | DX: J45.50 Severe persistent asthma, uncomplicated (principal) | CPT/HCPCS: 96372; J2357 ==

== ENCOUNTER 2021-10-11 19:41 | Inpatient (IN) | payer MEDICARE, OTHER ==
[~2021-10-11] VITALS: Ht 167.6 cm; Wt 83.7 kg
[2021-10-11 20:15] LABS: EOSINOPHILS PERCENT AUTO 1 % (0-6); RDW Coefficient Variation 13.9 % (11.7-14.2)
[2021-10-11 20:22] LABS: BASOPHILS ABSOLUTE AUTO 0.04 K/mm3 (0.00-0.23); BASOPHILS PERCENT AUTO 0 % (0-2); Hematocrit 42.9 % (33.0-51.0); IMMATURE GRAN ABSOLUTE AUTO 0.09 K/mm3 (0.00-0.10); IMMATURE GRAN PERCENT AUTO 1 % (0-1); LYMPHOCYTES ABSOLUTE AUTO 1.58 K/mm3 (0.84-5.20); LYMPHOCYTES PERCENT AUTO 17 % (21-46); MONOCYTES ABSOLUTE AUTO 0.31 K/mm3 (0.16-1.47); MONOCYTES PERCENT AUTO 3 % (4-13); Mean Corpuscular HGB 29.2 pg (26.0-34.0); Mean Corpuscular HGB Conc 32.6 g/dL (31.5-36.5); Mean Corpuscular Volume 90 fL (80-100); NEUTROPHILS ABSOLUTE AUTO 6.99 K/mm3 (1.96-9.15); NEUTROPHILS PERCENT AUTO 77 % (41-73); RDW Standard Deviation 45.8 fL (35.1-46.3); Red Blood Cell Count 4.79 M/mm3 (3.80-5.20); White Blood Cell Count 9.11 K/mm3 (4.00-11.30)
[2021-10-11 20:25] LABS: Acetaminophen, Random <2.0 ug/mL (10.0-30.0); Alanine Aminotransfer (ALT/SGP 121 U/L (12-78); Albumin, Blood 3.6 g/dL (3.4-5.0); Albumin/Globulin Ratio 1.1 (0.8-1.8); Alk Phos 96 U/L (50-136); Anion Gap 6 mmol/L (6-16); Aspartate Aminotrans (AST/SGOT 67 U/L (12-37); Bilirubin, Total 0.5 mg/dL (0.1-1.0); Blood Urea Nitrogen 20 mg/dL (8-24); Bun/Creatinine Ratio 23.3 (12.0-20.0); CO2, Blood 26 mmol/L (21-32); Calcium, Blood 9.2 mg/dL (8.5-10.1); Chloride, Blood 106 mmol/L (98-108); Creatinine, Blood 0.86 mg/dL (0.40-1.00); Globulin, Blood 3.3 g/dL (2.2-4.0); Glomerular Filtration Rate >60 (60-); Glucose, Blood 297 mg/dL (70-99); Mean Platelet Volume 10.4 fL (9.1-12.4); Platelet Count 224 K/mm3 (150-400); Salicylate <1.7 mg/dL (2.8-20.0); Sodium, Blood 138 mmol/L (136-145); Total Protein, Blood 6.9 g/dL (6.4-8.2)
[2021-10-11 21:12] LABS: Influenza A, PCR NEGATIVE (NEGATIVE); Influenza B, PCR NEGATIVE (NEGATIVE); Resp Syncytial Virus, PCR NEGATIVE (NEGATIVE); SARS-Cov-2 (COVID-19) PCR, MMC NEGATIVE (NEGATIVE)
[2021-10-11 21:17] LABS: Source, Urine Catheter
[2021-10-11] MEDS ORDERED: ATOR10 PO (21:17)
[2021-10-11] MEDS ORDERED: NEURONTIN300 MG PO (21:18)
[2021-10-11 21:20] LABS: Blood, Urine Neg (Neg); Glucose Qualitative, Urine Neg (Neg); Ketones, Urine Neg (Neg); Leukocyte Esterase, Urine Neg (Neg); Nitrite, Urine Neg (Neg); Protein, Urine 1+ (Neg); Urobilinogen, Urine 1+ (Normal)
[2021-10-11 21:29] LABS: Appearance, Urine Clear (Clear); Bilirubin, Urine 1+ (Neg); Color, Urine Yellow (P-Yellow)
[2021-10-11 22:10] LABS: U Amphetamine Screen Not Detected; U Barbituate Screen Not Detected; U Benzodiazapine Screen Not Detected; U Buprenorphine Screen Not Detected; U Cannabinoids Screen DETECTED; U Cocaine Screen Not Detected; U Methadone Screen Not Detected; U Methamphetamine Screen Not Detected; U Opiates Screen DETECTED; U Oxycodone Screen Not Detected; U Phencyclidine Screen Not Detected; U Propoxyphene Screen Not Detected
[2021-10-11 22:22] LABS: Troponin I <0.015 ng/mL (0.000-0.040)
[2021-10-12 05:46] LABS: BASOPHILS ABSOLUTE AUTO 0.03 K/mm3 (0.00-0.23); BASOPHILS PERCENT AUTO 0 % (0-2); EOSINOPHILS ABSOLUTE AUTO 0.01 K/mm3 (0.00-0.68); EOSINOPHILS PERCENT AUTO 0 % (0-6); Hematocrit 43.3 % (33.0-51.0); Hemoglobin 12.9 g/dL (11.5-16.0); IMMATURE GRAN ABSOLUTE AUTO 0.06 K/mm3 (0.00-0.10); IMMATURE GRAN PERCENT AUTO 1 % (0-1); LYMPHOCYTES ABSOLUTE AUTO 0.92 K/mm3 (0.84-5.20); LYMPHOCYTES PERCENT AUTO 9 % (21-46); MONOCYTES ABSOLUTE AUTO 0.56 K/mm3 (0.16-1.47); MONOCYTES PERCENT AUTO 5 % (4-13); Mean Corpuscular HGB 28.9 pg (26.0-34.0); Mean Corpuscular HGB Conc 29.8 g/dL (31.5-36.5); Mean Platelet Volume 9.8 fL (9.1-12.4); NEUTROPHILS ABSOLUTE AUTO 8.99 K/mm3 (1.96-9.15); NEUTROPHILS PERCENT AUTO 85 % (41-73); Platelet Count 178 K/mm3 (150-400); RDW Coefficient Variation 14.2 % (11.7-14.2); Red Blood Cell Count 4.46 M/mm3 (3.80-5.20); White Blood Cell Count 10.57 K/mm3 (4.00-11.30)
[2021-10-12 05:49] LABS: Mean Corpuscular Volume 97 fL (80-100)
[2021-10-12 06:29] LABS: Anion Gap 6 mmol/L (6-16); Blood Urea Nitrogen 22 mg/dL (8-24); Bun/Creatinine Ratio 26.6 (12.0-20.0); CO2, Blood 25 mmol/L (21-32); Calcium, Blood 8.3 mg/dL (8.5-10.1); Chloride, Blood 111 mmol/L (98-108); Creatinine, Blood 0.83 mg/dL (0.40-1.00); Glomerular Filtration Rate >60 (60-); Glucose, Blood 199 mg/dL (70-99); Magnesium, Blood 2.1 mg/dL (1.6-2.4); Potassium, Blood 5.1 mmol/L (3.5-5.5); Sodium, Blood 142 mmol/L (136-145)
--- NOTE | 2021-10-12 06:36 | NUR ---
SHIFT SUMMARY ASSUMED CARE AT 0330 WHEN PT ARRIVED AN ADMISSION FROM THE ED. PT AAOX3, OCCASIONAL FORGETFULNESS BUT EASILY REORIENTED. ON 2L OF O2. BILATERAL LUNGS WITH INSPIRATORY AND EXPIRATORY WHEEZING WITH DIMINISHED BREATH SOUNDS TO BASES. NO COUGHING NOTED. USES CPAP AT BEDTIME 2/2 BISHOP. HX OF COPD-NO HOME O2 USE; FORMER SMOKER-QUIT 40 YEARS AGO. PT C/O OCCASIONAL DIZZINESS. GENERALIZED WEAKNESS NOTED. PT CURRENTLY DENIES ABDOMINAL PAIN AND NAUSEA. WAS ABLE TO TOLERATE TAKING SIPS OF WATER AND ONE PILL-BEDSIDE SWALLOW STUDY PASSED. 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 STATES LAST BM WAS 10/11/21. STATES THAT HER BASELINE IS WALKING INDEPENDENTLY WITHOUT AIDES. STATES GRAND-DAUGHTER LIVES WITH HER BUT SHE IS COMPLETELY INDEPENDENT AND EVEN TENDS TO DAHLIA RAMIREZ. PT DOES FALL ASLEEP RATHER QUICKLY BUT IS AROUSABLE WITH AUDITORY STIMULI. PT IS A FALL RISK. BED IN LOW POSITION WITH THE CALL LIGHT WITHIN EASY REACH. PT ORIENTED TO ROOM AND CALL LIGHT FUNCTIONS. BED ALARM ACTIVATED. BLOOD GLUCOSE THIS MORNING WAS 180 MG/DL. WILL CONTINUE TO MONITOR.
--- NOTE | 2021-10-12 13:41 | NUR ---
SHIFT SUMMARY PT AWAKE THIS MORNING, A&O, FEELING BETTER. A LITTLE WEAK AND WOBBLY WHEN UP TO BRTHRM. WILLING TO USE FWW AND 1P SBA FOR SAFETY. FAMILY CALLED TO CHK ON PT; UPDATE GIVEN. PT REPORTED THAT SHE WAS "FINE AND JUST SLEEPING". LUNGS T/O WITH INSP/EXP WHEEZES THRU OUT. DR CACERES IN TO SEE PT. NEW ORDERS PLACE. PT LATER C/O IV SITE BECOMING TENDER; IVF'S STOPPED. DR CACERES NOTIFIED. IV MEDS CHANGED TO PO. PT TO D/C HOME TOMORROW. DENIES FURTHER NEEDS AT THIS TIME. CALL LT IN REACH.
--- NOTE | 2021-10-13 06:14 | NUR ---
SHIFT SUMMARY ASSUMED CARE AT 1900. NO ACUTE EVENTS OVERNIGHT. PT WAS PLEASANT AND COOPERATIVE. AAOX3 WITH SOME FORGETFULNESS BUT EASILY REORIENTED. PT WORE CPAP TO BED AND HAS CONTINUOUS PULSE OXIMETRY ON. AT ABOUT 0045, PT REQUESTED THAT CPAP BE REMOVED. PT PLACED ON 2L O2 VIA NC AND O2 SATS REMAINED >93%. CBG LAST NIGHT WAS 159 MG/DL. NO COMPLAINTS WERE VOICED. BED REMAINS IN LOW POSITION WITH THE CALL LIGHT WITH REACH. BED ALARM REMAINS ACTIVATED. WILL CONTINUE TO MONITOR.
[2021-10-13] MEDS ORDERED: Prednisone10 MG PO (14:21)
--- NOTE | 2021-10-13 14:45 | NUR ---
DISCHARGE NOTE D/C ORDERS REVIEVED AND REVIEWED. HOME O2 EVAL COMPLETED AND NEED FOR 2L CONT HOME O2 ESTABLISHED AND SET UP WITH CARLOS A. D/C ORDERS, PLANS AND EDUCATION REVIEWED WITH PT AND HER GRANDDAUGHTER. BOTH VERBALIZE UNDERSTANDING AND AGREE WITH PLAN. PT ESCORTED OUT VIA W/C, TRANSPORTED HOME VIA PRIVATE VEHICLE.
== END 2021-10-13 14:37 | disposition home or self-care (01) | DRG 190 ==
LOC: ER 19:41 → ERHOLD 19:42 → MEDS 19:42
PROVIDERS: Emergency Medicine; Family Medicine; ADMIT Internal Medicine
DX: J44.1 Chronic obstructive pulmonary disease with (acute) exacerbation (principal); G92.8 Other toxic encephalopathy; E87.2 Acidosis; Z20.822 Contact with and (suspected) exposure to COVID-19; E11.9 Type 2 diabetes mellitus without complications; I10 Essential (primary) hypertension; G89.29 Other chronic pain; M54.9 Dorsalgia, unspecified; E03.9 Hypothyroidism, unspecified; F12.20 Cannabis dependence, uncomplicated; G47.30 Sleep apnea, unspecified; Z99.89 Dependence on other enabling machines and devices; Z90.710 Acquired absence of both cervix and uterus; Z98.890 Other specified postprocedural states; Z87.891 Personal history of nicotine dependence; Z88.8 Allergy status to other drugs, medicaments and biological substances; Z88.0 Allergy status to penicillin; Z79.84 Long term (current) use of oral hypoglycemic drugs; Z79.899 Other long term (current) drug therapy
CPT/HCPCS: 0241U; 36415; 70450; 71045; 74177; 76705; 80048; 80053; 82140; 82947; 83605; 83690; 83735; 84443; 84484; 85025; 93005; 93010; 94640; 94660; 94664; 94762; 96365; 96366; 96372; 96375; 97116; 97161; 99285-25; A9270; G0378; G0480; J0692; J1650; J2270; J2405; J3010; J7030; J7512; P9612; Q9967

== ENCOUNTER 2021-11-12 05:08 | Day surgery (SDC) | payer MEDICARE, OTHER ==
[~2021-11-12 05:08] MED LIST changes: +ATOR10 PO; +NEURONTIN300 MG PO; +Prednisone10 MG PO
== END 2021-11-12 10:28 | disposition home or self-care (01) ==
LOC: ATC 05:08
DX: J45.50 Severe persistent asthma, uncomplicated (principal)
CPT/HCPCS: J2357

== ENCOUNTER 2021-11-26 03:47 | Day surgery (SDC) | payer MEDICARE, OTHER | END 2021-11-26 10:15 | disposition home or self-care (01) | LOC: ATC 03:47 | DX: J45.50 Severe persistent asthma, uncomplicated (principal) | CPT/HCPCS: J2357 ==

== ENCOUNTER 2021-12-10 05:33 | Day surgery (SDC) | payer MEDICARE, OTHER | END 2021-12-10 10:07 | disposition home or self-care (01) | LOC: ATC 05:33 | DX: J45.50 Severe persistent asthma, uncomplicated (principal); J44.9 Chronic obstructive pulmonary disease, unspecified; G47.33 Obstructive sleep apnea (adult) (pediatric); K21.9 Gastro-esophageal reflux disease without esophagitis; Z87.891 Personal history of nicotine dependence | CPT/HCPCS: J2357 ==

== ENCOUNTER → 2021-12-11 | Outpatient (CLI) | payer MEDICARE, OTHER ==
[2021-12-11 13:43] LABS: BASOPHILS ABSOLUTE AUTO 0.03 K/mm3 (0.00-0.23); BASOPHILS PERCENT AUTO 0 % (0-2); EOSINOPHILS ABSOLUTE AUTO 0.07 K/mm3 (0.00-0.68); EOSINOPHILS PERCENT AUTO 1 % (0-6); Hematocrit 42.5 % (33.0-51.0); IMMATURE GRAN ABSOLUTE AUTO 0.04 K/mm3 (0.00-0.10); IMMATURE GRAN PERCENT AUTO 0 % (0-1); LYMPHOCYTES ABSOLUTE AUTO 2.06 K/mm3 (0.84-5.20); LYMPHOCYTES PERCENT AUTO 20 % (21-46); MONOCYTES ABSOLUTE AUTO 0.87 K/mm3 (0.16-1.47); MONOCYTES PERCENT AUTO 9 % (4-13); Mean Corpuscular HGB Conc 32.9 g/dL (31.5-36.5); Mean Corpuscular Volume 91 fL (80-100); Mean Platelet Volume 9.5 fL (9.1-12.4); NEUTROPHILS ABSOLUTE AUTO 7.15 K/mm3 (1.96-9.15); NEUTROPHILS PERCENT AUTO 70 % (41-73); Platelet Count 299 K/mm3 (150-400); RDW Coefficient Variation 14.6 % (11.7-14.2); RDW Standard Deviation 48.8 fL (35.1-46.3); Red Blood Cell Count 4.66 M/mm3 (3.80-5.20); White Blood Cell Count 10.22 K/mm3 (4.00-11.30)
[2021-12-11 13:54] LABS: Free Thyroxine 1.14 ng/dL (0.70-1.60); Thyroid Stimulating Hormone 2.908 uIU/mL (0.360-4.800)
== END | disposition home or self-care (01) ==
LOC: LAB SHORT 13:28 → LAB 13:28
PROVIDERS: Family Medicine
DX: R53.83 Other fatigue (principal)
CPT/HCPCS: 84439; 84443; 85025; 85651; 86140

== ENCOUNTER 2021-12-24 03:20 | Day surgery (SDC) | payer MEDICARE, OTHER ==
[2021-12-24] MEDS ORDERED: Xolair150 MG SC (10:20)
== END 2021-12-24 10:13 | disposition home or self-care (01) ==
LOC: ATC 03:20
DX: J45.50 Severe persistent asthma, uncomplicated (principal); Z87.891 Personal history of nicotine dependence
CPT/HCPCS: J2357

== ENCOUNTER 2022-01-14 01:13 | Day surgery (SDC) | payer MEDICARE, OTHER ==
--- NOTE | 2022-01-14 12:07 | NUR ---
THIS STUDENT NURSE OBTAINED PERMISSION TO ASSIST IN HER CARE ON 01/14/22. UNDER THE SUPERVISION OF LOCO CHAHAL I ADMINISTERED 300 MG OF XOLAIR SUBCUTANEOUSLY ON THE PT'S LEFT DELTOID AREA.
== END 2022-01-14 10:24 | disposition home or self-care (01) ==
LOC: ATC 01:13
DX: J45.50 Severe persistent asthma, uncomplicated (principal); Z87.891 Personal history of nicotine dependence
CPT/HCPCS: J2357

== ENCOUNTER 2022-01-28 00:48 | Day surgery (SDC) | payer MEDICARE, OTHER | END 2022-01-28 10:45 | disposition home or self-care (01) | LOC: ATC 00:48 | DX: J45.50 Severe persistent asthma, uncomplicated (principal); J44.9 Chronic obstructive pulmonary disease, unspecified; I10 Essential (primary) hypertension; E11.9 Type 2 diabetes mellitus without complications; Z87.891 Personal history of nicotine dependence | CPT/HCPCS: J2357 ==

== ENCOUNTER 2022-02-11 02:49 | Day surgery (SDC) | payer MEDICARE, OTHER | END 2022-02-11 09:50 | disposition home or self-care (01) | LOC: ATC 02:49 | DX: J45.50 Severe persistent asthma, uncomplicated (principal) | CPT/HCPCS: J2357 ==

== ENCOUNTER 2022-02-25 09:35 | Day surgery (SDC) | payer MEDICARE, OTHER | END 2022-02-25 10:20 | disposition home or self-care (01) | LOC: ATC 09:35 | DX: J45.50 Severe persistent asthma, uncomplicated (principal); E11.9 Type 2 diabetes mellitus without complications; I10 Essential (primary) hypertension; Z88.8 Allergy status to other drugs, medicaments and biological substances; Z79.899 Other long term (current) drug therapy; Z87.891 Personal history of nicotine dependence | CPT/HCPCS: 96372; J2357 ==

== ENCOUNTER 2022-03-11 00:58 | Day surgery (SDC) | payer MEDICARE, OTHER | END 2022-03-11 10:17 | disposition home or self-care (01) | LOC: ATC 00:58 | DX: J45.50 Severe persistent asthma, uncomplicated (principal) | CPT/HCPCS: J2357 ==

== ENCOUNTER 2022-04-22 03:27 | Day surgery (SDC) | payer MEDICARE, OTHER | END 2022-04-22 10:52 | disposition home or self-care (01) | LOC: ATC 03:27 | DX: J45.50 Severe persistent asthma, uncomplicated (principal); G47.33 Obstructive sleep apnea (adult) (pediatric); Z87.891 Personal history of nicotine dependence; J44.9 Chronic obstructive pulmonary disease, unspecified; E11.9 Type 2 diabetes mellitus without complications; I10 Essential (primary) hypertension; E78.5 Hyperlipidemia, unspecified | CPT/HCPCS: 96372; J2357 ==

== ENCOUNTER 2022-05-06 00:46 | Day surgery (SDC) | payer MEDICARE, OTHER | END 2022-05-06 11:50 | disposition home or self-care (01) | LOC: ATC 00:46 | DX: J45.50 Severe persistent asthma, uncomplicated (principal); J44.9 Chronic obstructive pulmonary disease, unspecified; G47.33 Obstructive sleep apnea (adult) (pediatric); K21.9 Gastro-esophageal reflux disease without esophagitis; E11.9 Type 2 diabetes mellitus without complications; I10 Essential (primary) hypertension; E78.5 Hyperlipidemia, unspecified; Z79.84 Long term (current) use of oral hypoglycemic drugs; Z88.8 Allergy status to other drugs, medicaments and biological substances; Z87.891 Personal history of nicotine dependence | CPT/HCPCS: 96372; J2357 ==

== ENCOUNTER 2022-05-20 00:33 | Day surgery (SDC) | payer MEDICARE, OTHER | END 2022-05-20 09:55 | disposition home or self-care (01) | LOC: ATC 00:33 | DX: J45.50 Severe persistent asthma, uncomplicated (principal); K21.9 Gastro-esophageal reflux disease without esophagitis; E11.9 Type 2 diabetes mellitus without complications; I10 Essential (primary) hypertension; E78.5 Hyperlipidemia, unspecified; Z87.891 Personal history of nicotine dependence; J43.9 Emphysema, unspecified; G47.33 Obstructive sleep apnea (adult) (pediatric) | CPT/HCPCS: 96372; J2357 ==

== ENCOUNTER 2022-06-03 01:41 | Day surgery (SDC) | payer MEDICARE, OTHER | END 2022-06-03 09:18 | disposition home or self-care (01) | LOC: ATC 01:41 | DX: J45.50 Severe persistent asthma, uncomplicated (principal) | CPT/HCPCS: 96372; J2357 ==

== ENCOUNTER 2022-06-17 01:43 | Day surgery (SDC) | payer MEDICARE, OTHER | END 2022-06-17 10:10 | disposition home or self-care (01) | LOC: ATC 01:43 | DX: J45.50 Severe persistent asthma, uncomplicated (principal); G47.33 Obstructive sleep apnea (adult) (pediatric); K21.9 Gastro-esophageal reflux disease without esophagitis; J44.9 Chronic obstructive pulmonary disease, unspecified; E11.9 Type 2 diabetes mellitus without complications; I10 Essential (primary) hypertension; E78.5 Hyperlipidemia, unspecified; Z87.891 Personal history of nicotine dependence; Z79.82 Long term (current) use of aspirin; Z79.84 Long term (current) use of oral hypoglycemic drugs | CPT/HCPCS: 96372; J2357 ==

== ENCOUNTER 2022-07-15 02:01 | Day surgery (SDC) | payer MEDICARE, OTHER ==
[~2022-07-15 02:01] MED LIST changes: +Cymbalta20 MG PO
== END 2022-07-15 10:13 | disposition home or self-care (01) ==
LOC: ATC 02:01
DX: J45.50 Severe persistent asthma, uncomplicated (principal); I10 Essential (primary) hypertension; E11.9 Type 2 diabetes mellitus without complications; E78.5 Hyperlipidemia, unspecified; Z79.82 Long term (current) use of aspirin; Z79.84 Long term (current) use of oral hypoglycemic drugs; G47.33 Obstructive sleep apnea (adult) (pediatric)
CPT/HCPCS: J2357

== ENCOUNTER 2022-07-29 01:34 | Day surgery (SDC) | payer MEDICARE, OTHER | END 2022-07-29 09:33 | disposition home or self-care (01) | LOC: ATC 01:34 | DX: J45.50 Severe persistent asthma, uncomplicated (principal); G47.33 Obstructive sleep apnea (adult) (pediatric) | CPT/HCPCS: 96372; J2357 ==

== ENCOUNTER 2022-09-18 01:05 | Day surgery (SDC) | payer MEDICARE, OTHER | END 2022-09-18 10:01 | disposition home or self-care (01) | LOC: ATC 01:05 | DX: J45.50 Severe persistent asthma, uncomplicated (principal); E11.9 Type 2 diabetes mellitus without complications; I27.20 Pulmonary hypertension, unspecified; G47.33 Obstructive sleep apnea (adult) (pediatric) | CPT/HCPCS: 96372; J2357 ==

== ENCOUNTER 2023-03-16 00:25 | Day surgery (SDC) | payer MEDICARE, OTHER ==
[2023-03-16 10:33] VITALS: BP 142/68
== END 2023-03-16 10:44 | disposition home or self-care (01) ==
LOC: ATC 00:25
DX: J45.50 Severe persistent asthma, uncomplicated (principal); Z88.8 Allergy status to other drugs, medicaments and biological substances; E11.9 Type 2 diabetes mellitus without complications; I27.20 Pulmonary hypertension, unspecified; G47.33 Obstructive sleep apnea (adult) (pediatric)
CPT/HCPCS: 96372; J2357

== ENCOUNTER 2023-04-13 01:00 | Day surgery (SDC) | payer MEDICARE, OTHER ==
[2023-04-13 10:15] VITALS: BP 120/75
== END 2023-04-13 10:25 | disposition home or self-care (01) ==
LOC: ATC 01:00
DX: J45.50 Severe persistent asthma, uncomplicated (principal); Z88.2 Allergy status to sulfonamides; Z88.8 Allergy status to other drugs, medicaments and biological substances; J44.9 Chronic obstructive pulmonary disease, unspecified; E11.9 Type 2 diabetes mellitus without complications; I10 Essential (primary) hypertension; E78.5 Hyperlipidemia, unspecified; E03.9 Hypothyroidism, unspecified; Z87.891 Personal history of nicotine dependence
CPT/HCPCS: 96372; J2357

== ENCOUNTER 2023-05-11 02:13 | Day surgery (SDC) | payer MEDICARE, OTHER ==
[2023-05-11 09:58] VITALS: BP 132/74
== END 2023-05-11 10:04 | disposition home or self-care (01) ==
LOC: ATC 02:13
DX: J45.50 Severe persistent asthma, uncomplicated (principal); J01.00 Acute maxillary sinusitis, unspecified; G47.33 Obstructive sleep apnea (adult) (pediatric); I10 Essential (primary) hypertension; E78.5 Hyperlipidemia, unspecified; J44.9 Chronic obstructive pulmonary disease, unspecified; E11.9 Type 2 diabetes mellitus without complications; Z87.891 Personal history of nicotine dependence; Z88.2 Allergy status to sulfonamides; Z79.82 Long term (current) use of aspirin; Z79.899 Other long term (current) drug therapy
CPT/HCPCS: 96372; J2357

== ENCOUNTER 2023-05-25 00:33 | Day surgery (SDC) | payer MEDICARE, OTHER ==
[2023-05-25 09:54] VITALS: BP 134/74
== END 2023-05-25 10:00 | disposition home or self-care (01) ==
LOC: ATC 00:33
DX: J45.50 Severe persistent asthma, uncomplicated (principal); M19.90 Unspecified osteoarthritis, unspecified site; J45.909 Unspecified asthma, uncomplicated; J44.9 Chronic obstructive pulmonary disease, unspecified; E11.9 Type 2 diabetes mellitus without complications; I10 Essential (primary) hypertension; E78.5 Hyperlipidemia, unspecified; E07.9 Disorder of thyroid, unspecified; G47.33 Obstructive sleep apnea (adult) (pediatric); Z79.84 Long term (current) use of oral hypoglycemic drugs; Z87.891 Personal history of nicotine dependence
CPT/HCPCS: 96372; J2357

== ENCOUNTER 2023-06-03 06:42 | Day surgery (SDC) | payer MEDICARE, OTHER ==
[~2023-06-03] VITALS: Ht 154.9 cm; Wt 75.4 kg
[2023-06-03] MEDS ORDERED: FLUT1DIS2 (07:07)
--- NOTE | 2023-06-03 07:15 | NUR ---
06/03/23 0715 Kitty Gutierrez TETRACAINE IN LEFT EYE AT 0705. PLEDGET PLACED IN LEFT EYE AT 0706, PATIENT TOLERATED WELL.
[2023-06-03 08:20] VITALS: BP 136/79
== END 2023-06-03 08:34 | disposition home or self-care (01) ==
LOC: ORSCSDS 06:42
PROVIDERS: Student in an Organized Health Care Education/Training Program
PROC: 08RK3JZ Replacement of Left Lens with Synthetic Substitute, Percutaneous Approach (ICD-10-PCS; principal; 2023-06-03 08:00)
DX: E11.36 Type 2 diabetes mellitus with diabetic cataract (principal); H25.12 Age-related nuclear cataract, left eye; Z87.891 Personal history of nicotine dependence; E78.5 Hyperlipidemia, unspecified; I10 Essential (primary) hypertension; J44.9 Chronic obstructive pulmonary disease, unspecified; Z79.82 Long term (current) use of aspirin; Z79.84 Long term (current) use of oral hypoglycemic drugs; Z79.899 Other long term (current) drug therapy
CPT/HCPCS: 82947; J2250; J7040; V2632

== ENCOUNTER 2023-06-09 08:36 | Day surgery (SDC) | payer MEDICARE, OTHER ==
[~2023-06-09 08:36] MED LIST changes: +FLUT1DIS2
[2023-06-09 10:13] VITALS: BP 135/70
== END 2023-06-09 10:15 | disposition home or self-care (01) ==
LOC: ATC 08:36
DX: J45.50 Severe persistent asthma, uncomplicated (principal); Z88.2 Allergy status to sulfonamides; J44.9 Chronic obstructive pulmonary disease, unspecified; E11.9 Type 2 diabetes mellitus without complications; I10 Essential (primary) hypertension; E78.5 Hyperlipidemia, unspecified; Z87.891 Personal history of nicotine dependence; G47.33 Obstructive sleep apnea (adult) (pediatric)
CPT/HCPCS: 96372; J2357

== ENCOUNTER 2023-06-23 02:24 | Day surgery (SDC) | payer MEDICARE, OTHER ==
[2023-06-23 11:02] VITALS: BP 172/112
== END 2023-06-23 10:40 | disposition home or self-care (01) ==
LOC: ATC 02:24
DX: J45.50 Severe persistent asthma, uncomplicated (principal); E11.9 Type 2 diabetes mellitus without complications; J44.9 Chronic obstructive pulmonary disease, unspecified; I10 Essential (primary) hypertension; E78.5 Hyperlipidemia, unspecified; Z88.2 Allergy status to sulfonamides; Z88.8 Allergy status to other drugs, medicaments and biological substances; G47.33 Obstructive sleep apnea (adult) (pediatric)
CPT/HCPCS: 96372; J2357

== ENCOUNTER 2023-07-21 01:47 | Day surgery (SDC) | payer MEDICARE, OTHER ==
[2023-07-21 10:31] VITALS: BP 126/94
[2023-07-21] MEDS ORDERED: Xolair150 MG SC (12:25)
== END 2023-07-21 10:33 | disposition home or self-care (01) ==
LOC: ATC 01:47
DX: J45.50 Severe persistent asthma, uncomplicated (principal); Z88.2 Allergy status to sulfonamides; I10 Essential (primary) hypertension; E11.9 Type 2 diabetes mellitus without complications; Z87.891 Personal history of nicotine dependence; G47.33 Obstructive sleep apnea (adult) (pediatric); J01.00 Acute maxillary sinusitis, unspecified
CPT/HCPCS: 96372; J2357

== ENCOUNTER 2023-08-04 01:29 | Day surgery (SDC) | payer MEDICARE, OTHER ==
[2023-08-04 09:45] VITALS: BP 143/80
== END 2023-08-04 09:45 | disposition home or self-care (01) ==
LOC: ATC 01:29
DX: J45.50 Severe persistent asthma, uncomplicated (principal); E11.9 Type 2 diabetes mellitus without complications; I10 Essential (primary) hypertension; E78.5 Hyperlipidemia, unspecified; J44.9 Chronic obstructive pulmonary disease, unspecified; Z87.891 Personal history of nicotine dependence; G47.33 Obstructive sleep apnea (adult) (pediatric)
CPT/HCPCS: 96372; J2357

== ENCOUNTER 2023-08-18 02:20 | Day surgery (SDC) | payer MEDICARE, OTHER ==
[2023-08-18 09:18] VITALS: BP 121/72
== END 2023-08-18 09:26 | disposition home or self-care (01) ==
LOC: ATC 02:20
DX: J45.50 Severe persistent asthma, uncomplicated (principal); E11.9 Type 2 diabetes mellitus without complications; I10 Essential (primary) hypertension; E78.5 Hyperlipidemia, unspecified; Z79.899 Other long term (current) drug therapy; Z79.82 Long term (current) use of aspirin; Z79.84 Long term (current) use of oral hypoglycemic drugs
CPT/HCPCS: 96372; J2357

== ENCOUNTER → 2023-08-30 | Outpatient (CLI) | payer MEDICARE, OTHER ==
[2023-08-30 15:23] LABS: BASOPHILS ABSOLUTE AUTO 0.03 K/mm3 (0.00-0.23); BASOPHILS PERCENT AUTO 1 % (0-2); EOSINOPHILS PERCENT AUTO 4 % (0-6); Hematocrit 45.7 % (33.0-51.0); Hemoglobin 15.1 g/dL (11.5-16.0); IMMATURE GRAN ABSOLUTE AUTO 0.01 K/mm3 (0.00-0.10); IMMATURE GRAN PERCENT AUTO 0 % (0-1); LYMPHOCYTES ABSOLUTE AUTO 1.79 K/mm3 (0.84-5.20); LYMPHOCYTES PERCENT AUTO 32 % (21-46); MONOCYTES ABSOLUTE AUTO 0.66 K/mm3 (0.16-1.47); MONOCYTES PERCENT AUTO 12 % (4-13); Mean Corpuscular HGB 29.5 pg (26.0-34.0); Mean Corpuscular Volume 89 fL (80-100); Mean Platelet Volume 8.9 fL (9.1-12.4); NEUTROPHILS ABSOLUTE AUTO 2.93 K/mm3 (1.96-9.15); NEUTROPHILS PERCENT AUTO 52 % (41-73); Platelet Count 255 K/mm3 (150-400); RDW Coefficient Variation 14.6 % (11.7-14.2); RDW Standard Deviation 47.5 fL (35.1-46.3); Red Blood Cell Count 5.11 M/mm3 (3.80-5.20); White Blood Cell Count 5.62 K/mm3 (4.00-11.30)
[2023-08-30 15:44] LABS: Albumin, Blood 3.8 g/dL (3.4-5.0); Albumin/Globulin Ratio 1.2 (0.8-1.8); Bilirubin, Total 0.3 mg/dL (0.1-1.0); Bun/Creatinine Ratio 6.3 (12.0-20.0); Calcium, Blood 9.3 mg/dL (8.5-10.1); Creatinine, Blood 0.95 mg/dL (0.40-1.00); Globulin, Blood 3.1 g/dL (2.2-4.0); Potassium, Blood 3.8 mmol/L (3.5-5.5); Thyroid Stimulating Hormone 0.377 uIU/mL (0.360-4.800); Total Protein, Blood 6.9 g/dL (6.4-8.2)
== END ==
LOC: LAB 15:20 → LAB SHORT 15:20
PROVIDERS: Physician Assistant
DX: R53.83 Other fatigue (principal)
CPT/HCPCS: 80053; 84443; 85025

== ENCOUNTER 2023-09-01 01:23 | Day surgery (SDC) | payer MEDICARE, OTHER ==
[2023-09-01 10:44] VITALS: BP 129/55
== END 2023-09-01 10:12 | disposition home or self-care (01) ==
LOC: ATC 01:23
DX: J45.50 Severe persistent asthma, uncomplicated (principal); Z88.2 Allergy status to sulfonamides; J44.9 Chronic obstructive pulmonary disease, unspecified; I10 Essential (primary) hypertension; E11.9 Type 2 diabetes mellitus without complications; E03.9 Hypothyroidism, unspecified; E78.5 Hyperlipidemia, unspecified; Z87.891 Personal history of nicotine dependence
CPT/HCPCS: 96372; J2357

== ENCOUNTER 2023-09-15 04:17 | Day surgery (SDC) | payer MEDICARE, OTHER ==
[2023-09-15 09:10] VITALS: BP 126/85
== END 2023-09-15 09:10 | disposition home or self-care (01) ==
LOC: ATC 04:17
DX: J45.50 Severe persistent asthma, uncomplicated (principal); Z88.2 Allergy status to sulfonamides; I10 Essential (primary) hypertension; E11.9 Type 2 diabetes mellitus without complications; E78.5 Hyperlipidemia, unspecified; G47.33 Obstructive sleep apnea (adult) (pediatric)
CPT/HCPCS: 96372; J2357

== ENCOUNTER 2023-10-14 01:07 | Day surgery (SDC) | payer MEDICARE, OTHER ==
[2023-10-14 10:10] VITALS: BP 110/70
== END 2023-10-14 10:13 | disposition home or self-care (01) ==
LOC: ATC 01:07
DX: J45.50 Severe persistent asthma, uncomplicated (principal); E78.5 Hyperlipidemia, unspecified; I10 Essential (primary) hypertension; E11.9 Type 2 diabetes mellitus without complications; G47.33 Obstructive sleep apnea (adult) (pediatric); Z79.82 Long term (current) use of aspirin; Z87.891 Personal history of nicotine dependence
CPT/HCPCS: 96372; J2357

== ENCOUNTER 2023-10-28 02:45 | Day surgery (SDC) | payer MEDICARE, OTHER ==
[2023-10-28 10:06] VITALS: BP 144/80
== END 2023-10-28 10:12 | disposition home or self-care (01) ==
LOC: ATC 02:45
DX: J45.50 Severe persistent asthma, uncomplicated (principal); G47.33 Obstructive sleep apnea (adult) (pediatric); J44.9 Chronic obstructive pulmonary disease, unspecified; I10 Essential (primary) hypertension; E11.9 Type 2 diabetes mellitus without complications; E78.5 Hyperlipidemia, unspecified; Z87.891 Personal history of nicotine dependence; Z88.2 Allergy status to sulfonamides; Z79.82 Long term (current) use of aspirin; Z79.890 Hormone replacement therapy; Z79.899 Other long term (current) drug therapy
CPT/HCPCS: 96372; J2357

== ENCOUNTER 2024-01-25 04:42 | Day surgery (SDC) | payer MEDICARE, OTHER ==
[~2024-01-25 04:42] MED LIST changes: +ALBU90OI INH; +ASPIR 8181 M1 PO; +ATOR20 PO; +CLOP75 PO; +CLOPIDOGREL75 MG PO; +OZEMPIC2 MG/0.75 SC; +WIXELA 500-501 EAC1
[2024-01-25] MEDS ORDERED: Omalizumab 150 MG Syringe SC SCH (07:20)
[2024-01-25 10:15] VITALS: BP 127/67
[2024-01-25] MEDS ORDERED: PLAVIX75 MG PO (10:18)
== END 2024-01-25 10:25 | disposition home or self-care (01) ==
LOC: ATC 04:42
DX: J45.50 Severe persistent asthma, uncomplicated (principal); J44.9 Chronic obstructive pulmonary disease, unspecified; E11.9 Type 2 diabetes mellitus without complications; I10 Essential (primary) hypertension; G47.33 Obstructive sleep apnea (adult) (pediatric); Z79.899 Other long term (current) drug therapy; Z79.82 Long term (current) use of aspirin; Z88.2 Allergy status to sulfonamides; Z87.891 Personal history of nicotine dependence
CPT/HCPCS: 96372; J2357

== ENCOUNTER 2024-04-06 03:07 | Day surgery (SDC) | payer MEDICARE, OTHER ==
[~2024-04-06 03:07] MED LIST changes: +PLAVIX75 MG PO
[2024-04-06] MEDS ORDERED: Omalizumab 150 MG Syringe SC SCH ×2 (06:00→07:00)
[2024-04-06 10:00] VITALS: BP 137/80
== END 2024-04-06 10:03 | disposition home or self-care (01) ==
LOC: ATC 03:07
DX: J45.50 Severe persistent asthma, uncomplicated (principal); J44.89 Other specified chronic obstructive pulmonary disease; G47.33 Obstructive sleep apnea (adult) (pediatric); I10 Essential (primary) hypertension; E11.9 Type 2 diabetes mellitus without complications; E78.5 Hyperlipidemia, unspecified; Z87.891 Personal history of nicotine dependence; Z88.2 Allergy status to sulfonamides; Z88.1 Allergy status to other antibiotic agents; Z88.8 Allergy status to other drugs, medicaments and biological substances; Z79.82 Long term (current) use of aspirin; Z79.84 Long term (current) use of oral hypoglycemic drugs; Z79.899 Other long term (current) drug therapy
CPT/HCPCS: 96372; J2357

== ENCOUNTER 2024-04-20 02:15 | Day surgery (SDC) | payer MEDICARE, OTHER ==
[2024-04-20] MEDS ORDERED: Omalizumab 150 MG Syringe SC SCH (06:55)
[2024-04-20 09:45] VITALS: BP 127/72
== END 2024-04-20 09:52 | disposition home or self-care (01) ==
LOC: ATC 02:15
DX: J45.50 Severe persistent asthma, uncomplicated (principal); G47.33 Obstructive sleep apnea (adult) (pediatric); E11.9 Type 2 diabetes mellitus without complications; I10 Essential (primary) hypertension; E78.5 Hyperlipidemia, unspecified; Z79.84 Long term (current) use of oral hypoglycemic drugs; Z79.899 Other long term (current) drug therapy; Z87.891 Personal history of nicotine dependence; Z88.2 Allergy status to sulfonamides; Z88.8 Allergy status to other drugs, medicaments and biological substances
CPT/HCPCS: 96372; J2357

== ENCOUNTER 2024-05-25 05:49 | Day surgery (SDC) | payer MEDICARE, OTHER ==
[2024-05-25] MEDS ORDERED: Omalizumab 150 MG Syringe SC SCH (07:15)
[2024-05-25] MEDS ORDERED: Omalizumab 150 MG Syringe SC ONE (10:27)
[2024-05-25 10:58] VITALS: BP 136/74
== END 2024-05-25 11:04 | disposition home or self-care (01) ==
LOC: ATC 05:49
DX: J45.50 Severe persistent asthma, uncomplicated (principal); J44.89 Other specified chronic obstructive pulmonary disease; I10 Essential (primary) hypertension; E11.9 Type 2 diabetes mellitus without complications; E78.5 Hyperlipidemia, unspecified; Z88.2 Allergy status to sulfonamides; Z79.82 Long term (current) use of aspirin; Z79.890 Hormone replacement therapy; Z79.84 Long term (current) use of oral hypoglycemic drugs; Z79.899 Other long term (current) drug therapy
CPT/HCPCS: 96372; J2357

== ENCOUNTER 2024-06-08 03:44 | Day surgery (SDC) | payer MEDICARE, OTHER ==
[2024-06-08] MEDS ORDERED: Omalizumab 150 MG Syringe SC SCH (06:00)
[2024-06-08 10:37] VITALS: BP 126/65
== END 2024-06-08 10:43 | disposition home or self-care (01) ==
LOC: ATC 03:44
DX: J45.50 Severe persistent asthma, uncomplicated (principal); G47.33 Obstructive sleep apnea (adult) (pediatric); I10 Essential (primary) hypertension; E78.5 Hyperlipidemia, unspecified; E11.9 Type 2 diabetes mellitus without complications; J44.89 Other specified chronic obstructive pulmonary disease; Z87.891 Personal history of nicotine dependence; Z88.2 Allergy status to sulfonamides; Z79.82 Long term (current) use of aspirin; Z79.890 Hormone replacement therapy; Z79.84 Long term (current) use of oral hypoglycemic drugs; Z79.899 Other long term (current) drug therapy
CPT/HCPCS: 96372; J2357

== ENCOUNTER 2024-06-22 01:28 | Day surgery (SDC) | payer MEDICARE, OTHER ==
[2024-06-22] MEDS ORDERED: Omalizumab 150 MG Syringe SC SCH (06:00)
[2024-06-22 10:52] VITALS: BP 149/86
== END 2024-06-22 10:55 | disposition home or self-care (01) ==
LOC: ATC 01:28
DX: J44.89 Other specified chronic obstructive pulmonary disease (principal); J45.50 Severe persistent asthma, uncomplicated; E11.9 Type 2 diabetes mellitus without complications; R91.8 Other nonspecific abnormal finding of lung field; I10 Essential (primary) hypertension; E78.5 Hyperlipidemia, unspecified; E07.9 Disorder of thyroid, unspecified; Z87.891 Personal history of nicotine dependence; Z79.51 Long term (current) use of inhaled steroids; Z88.2 Allergy status to sulfonamides; Z88.1 Allergy status to other antibiotic agents; Z88.8 Allergy status to other drugs, medicaments and biological substances; Z79.890 Hormone replacement therapy; Z79.899 Other long term (current) drug therapy; Z79.84 Long term (current) use of oral hypoglycemic drugs; Z79.85 Long-term (current) use of injectable non-insulin antidiabetic drugs
CPT/HCPCS: 96372; J2357

== ENCOUNTER 2024-07-21 02:36 | Day surgery (SDC) | payer MEDICARE, OTHER ==
[2024-07-21] MEDS ORDERED: Omalizumab 150 MG Syringe SC SCH (09:00)
[2024-07-21 09:04] VITALS: BP 148/89
[2024-08-10] MEDS ORDERED: SPIRIVA RESPIMAT4 G2 INH (12:02)
[2024-08-10] MEDS ORDERED: FLUT1DIS2 INH (12:03)
== END 2024-07-21 09:11 | disposition home or self-care (01) ==
LOC: ATC 02:36
DX: J44.89 Other specified chronic obstructive pulmonary disease (principal); J45.50 Severe persistent asthma, uncomplicated; G47.33 Obstructive sleep apnea (adult) (pediatric); R91.8 Other nonspecific abnormal finding of lung field; E11.9 Type 2 diabetes mellitus without complications; I10 Essential (primary) hypertension; Z87.891 Personal history of nicotine dependence; Z79.84 Long term (current) use of oral hypoglycemic drugs; Z79.899 Other long term (current) drug therapy; Z88.2 Allergy status to sulfonamides; Z88.1 Allergy status to other antibiotic agents; Z88.8 Allergy status to other drugs, medicaments and biological substances; Z90.710 Acquired absence of both cervix and uterus
CPT/HCPCS: 96372; J2357

== ENCOUNTER 2024-08-04 01:47 | Day surgery (SDC) | payer MEDICARE, OTHER ==
[2024-08-04] MEDS ORDERED: Omalizumab 150 MG Syringe SC SCH (06:55)
[2024-08-04 11:20] VITALS: BP 121/77
== END 2024-08-04 11:24 | disposition home or self-care (01) ==
LOC: ATC 01:47
DX: J45.50 Severe persistent asthma, uncomplicated (principal); G47.33 Obstructive sleep apnea (adult) (pediatric); E11.9 Type 2 diabetes mellitus without complications; E78.5 Hyperlipidemia, unspecified; Z79.899 Other long term (current) drug therapy; Z99.89 Dependence on other enabling machines and devices; Z88.2 Allergy status to sulfonamides; Z87.891 Personal history of nicotine dependence
CPT/HCPCS: 96372; J2357

== ENCOUNTER 2024-08-18 05:01 | Day surgery (SDC) | payer MEDICARE, OTHER ==
[~2024-08-18 05:01] MED LIST changes: +FLUT1DIS2 INH; +SPIRIVA RESPIMAT4 G2 INH
[2024-08-18] MEDS ORDERED: Omalizumab 150 MG Syringe SC SCH (06:55)
[2024-08-18 11:10] VITALS: BP 131/73
== END 2024-08-18 11:14 | disposition home or self-care (01) ==
LOC: ATC 05:01
DX: J45.50 Severe persistent asthma, uncomplicated (principal); J44.89 Other specified chronic obstructive pulmonary disease; I10 Essential (primary) hypertension; E11.9 Type 2 diabetes mellitus without complications; E78.5 Hyperlipidemia, unspecified; Z87.891 Personal history of nicotine dependence; Z79.82 Long term (current) use of aspirin; Z88.2 Allergy status to sulfonamides; Z88.1 Allergy status to other antibiotic agents; Z79.899 Other long term (current) drug therapy
CPT/HCPCS: 96372; J2357

== ENCOUNTER 2024-08-30 00:49 | Day surgery (SDC) | payer MEDICARE, OTHER ==
[2024-08-30] MEDS ORDERED: Omalizumab 150 MG Syringe SC SCH (10:40)
[2024-08-30 11:15] VITALS: BP 142/93
== END 2024-08-30 11:25 | disposition home or self-care (01) ==
LOC: ATC 00:49
DX: J45.50 Severe persistent asthma, uncomplicated (principal); E11.9 Type 2 diabetes mellitus without complications; E78.5 Hyperlipidemia, unspecified; I10 Essential (primary) hypertension; G47.33 Obstructive sleep apnea (adult) (pediatric); Z87.891 Personal history of nicotine dependence; Z79.82 Long term (current) use of aspirin; Z79.899 Other long term (current) drug therapy; Z88.2 Allergy status to sulfonamides; Z99.89 Dependence on other enabling machines and devices
CPT/HCPCS: 96372; J2357

== ENCOUNTER 2024-10-03 03:54 | Day surgery (SDC) | payer MEDICARE, OTHER ==
[2024-10-03] MEDS ORDERED: Omalizumab 150 MG Syringe SC SCH (07:10)
[2024-10-03 10:50] VITALS: BP 152/101
== END 2024-10-03 10:54 | disposition home or self-care (01) ==
LOC: ATC 03:54
DX: J44.89 Other specified chronic obstructive pulmonary disease (principal); J45.50 Severe persistent asthma, uncomplicated; I10 Essential (primary) hypertension; E11.9 Type 2 diabetes mellitus without complications; E78.5 Hyperlipidemia, unspecified; Z87.891 Personal history of nicotine dependence; Z88.2 Allergy status to sulfonamides; Z79.82 Long term (current) use of aspirin; Z79.890 Hormone replacement therapy; Z79.899 Other long term (current) drug therapy; G47.33 Obstructive sleep apnea (adult) (pediatric)
CPT/HCPCS: 96372; J2357

== ENCOUNTER 2024-10-18 07:00 | Day surgery (SDC) | payer MEDICARE, OTHER ==
[~2024-10-18 07:00] MED LIST changes: +Omalizumab 150 MG Syringe SC SCH
[2024-10-18 10:48] VITALS: BP 131/85
== END 2024-10-18 10:58 | disposition home or self-care (01) ==
LOC: ATC 07:00
DX: J45.50 Severe persistent asthma, uncomplicated (principal); J44.9 Chronic obstructive pulmonary disease, unspecified; E11.9 Type 2 diabetes mellitus without complications; E78.5 Hyperlipidemia, unspecified; E07.9 Disorder of thyroid, unspecified; Z87.891 Personal history of nicotine dependence; Z79.02 Long term (current) use of antithrombotics/antiplatelets; Z79.82 Long term (current) use of aspirin; Z79.84 Long term (current) use of oral hypoglycemic drugs; Z79.890 Hormone replacement therapy; Z79.899 Other long term (current) drug therapy; Z88.2 Allergy status to sulfonamides; Z88.1 Allergy status to other antibiotic agents; Z88.8 Allergy status to other drugs, medicaments and biological substances; Z90.710 Acquired absence of both cervix and uterus
CPT/HCPCS: 96372; J2357

== ENCOUNTER 2024-11-01 10:42 | Day surgery (SDC) | payer MEDICARE, OTHER ==
[2024-11-01 10:54] VITALS: BP 128/76
== END 2024-11-01 11:00 | disposition home or self-care (01) ==
LOC: ATC 10:42
DX: J45.50 Severe persistent asthma, uncomplicated (principal); E11.9 Type 2 diabetes mellitus without complications; I10 Essential (primary) hypertension; E78.5 Hyperlipidemia, unspecified; G47.33 Obstructive sleep apnea (adult) (pediatric); Z79.82 Long term (current) use of aspirin; Z79.899 Other long term (current) drug therapy; Z87.891 Personal history of nicotine dependence; Z88.2 Allergy status to sulfonamides; Z88.8 Allergy status to other drugs, medicaments and biological substances; Z99.89 Dependence on other enabling machines and devices
CPT/HCPCS: 96372; J2357

== ENCOUNTER 2024-11-15 08:43 | Day surgery (SDC) | payer MEDICARE, OTHER ==
[2024-11-15 11:15] VITALS: BP 129/65
== END 2024-11-15 11:19 | disposition home or self-care (01) ==
LOC: ATC 08:43
DX: J45.50 Severe persistent asthma, uncomplicated (principal); J43.9 Emphysema, unspecified; E11.9 Type 2 diabetes mellitus without complications; E78.5 Hyperlipidemia, unspecified; I10 Essential (primary) hypertension; G47.33 Obstructive sleep apnea (adult) (pediatric); Z87.891 Personal history of nicotine dependence; Z79.82 Long term (current) use of aspirin; Z79.02 Long term (current) use of antithrombotics/antiplatelets; Z79.899 Other long term (current) drug therapy; Z88.2 Allergy status to sulfonamides; Z88.1 Allergy status to other antibiotic agents; Z88.8 Allergy status to other drugs, medicaments and biological substances; Z90.710 Acquired absence of both cervix and uterus
CPT/HCPCS: 96372; J2357

== ENCOUNTER 2024-11-29 00:16 | Day surgery (SDC) | payer MEDICARE, OTHER ==
[~2024-11-29 00:16] MED LIST changes: -Omalizumab 150 MG Syringe SC SCH
[2024-11-29] MEDS ORDERED: Omalizumab 150 MG Syringe SC SCH (07:05)
[2024-11-29 10:57] VITALS: BP 141/69
== END 2024-11-29 11:03 | disposition home or self-care (01) ==
LOC: ATC 00:16
DX: J45.50 Severe persistent asthma, uncomplicated (principal); J44.9 Chronic obstructive pulmonary disease, unspecified; G47.33 Obstructive sleep apnea (adult) (pediatric); E11.9 Type 2 diabetes mellitus without complications; E03.9 Hypothyroidism, unspecified; I10 Essential (primary) hypertension; E78.5 Hyperlipidemia, unspecified; Z87.891 Personal history of nicotine dependence; Z79.82 Long term (current) use of aspirin; Z79.02 Long term (current) use of antithrombotics/antiplatelets; Z79.890 Hormone replacement therapy; Z79.899 Other long term (current) drug therapy; Z88.2 Allergy status to sulfonamides; Z88.1 Allergy status to other antibiotic agents; Z88.8 Allergy status to other drugs, medicaments and biological substances; Z90.710 Acquired absence of both cervix and uterus
CPT/HCPCS: 36415; 83036; 84443; 96372; J2357

== ENCOUNTER 2024-12-07 06:41 | Day surgery (SDC) | payer MEDICARE, OTHER ==
[~2024-12-07] VITALS: Ht 154.9 cm; Wt 59.6 kg
[2024-12-07] VITALS (18 sets, daily range): BP systolic 122–148; BP diastolic 67–105
[~2024-12-07 06:41] MED LIST changes: +Lactated Ringer's 1,000 ML IV SCH
[2024-12-07] MEDS ORDERED: propofoL 40 ML IV ONE (06:48)
--- NOTE | 2024-12-07 07:20 | NUR ---
Ambulatory in Day Surgery. History, Chart, Medications and Allergies reviewed before start of procedure.Patient confirms NPO status and agrees with scheduled surgery. Patient states colon prep results clear.Lungs clear T/O to Auscultation. Patient States Post-Procedure ride home has been arranged WITH MELI.
--- NOTE | 2024-12-07 07:39 | NUR ---
12/07/24 0739 Amy Santana CONFIRMED AND REVIEWED H&P, MEDCICATIONS, ALLERGIES, MEDICAL HISTORY, RESPIRATORY HISTORY, VITAL SIGNS, 3-LEAD EKG, CONSENTS, AND PHYSICIAN ORDERS. PATIENT CONFIRMS NPO STATUS AND AGREES WITH SCHEDULED PROCEDURE. MONITOR INTACT WITH CONTINUOUS PULSE OXIMETRY, CAPNOGRAPHY, 3-LEAD EKG, INTERMITTENT BP. SUPPLEMENTAL O2 TO BE TITRATED THROUGHOUT PROCEDURE TO MAINTAIN O2 SATURATION ABOVE 90%. PATIENT DETERMINED TO BE ASA APPROPRIATE FOR PROPOFOL SEDATION PRIOR TO START OF PROCEDURE BY DR. STINSON MALLAMPATI CLASS 2 AIRWAY: COMPLETE VISUALIZATION OF THE UVULA.
--- NOTE | 2024-12-07 08:26 | NUR ---
Patient up to Ambulate independently. Gait steady. Discharge instructions reviewed with patient. Patient verbalizes understanding. Copy given to patient to take home, WELL FAMILY. Patient States Post-Procedure ride home has been arranged. Discharged via wheelchair to private car for ride home. PT TOLERATING PO, REPORTS READY TO GO HOME.
== END 2024-12-07 08:26 | disposition home or self-care (01) ==
LOC: ORSCMMR 06:41 → ORD 07:30 → ORSCMMR 08:26
PROVIDERS: Internal Medicine Gastroenterology
PROC: 0DJD8ZZ Inspection of Lower Intestinal Tract, Via Natural or Artificial Opening Endoscopic (ICD-10-PCS; principal; 2024-12-07 07:30)
DX: Z12.11 Encounter for screening for malignant neoplasm of colon (principal); K57.30 Diverticulosis of large intestine without perforation or abscess without bleeding; Z86.73 Personal history of transient ischemic attack (TIA), and cerebral infarction without residual deficits; I73.9 Peripheral vascular disease, unspecified; E11.9 Type 2 diabetes mellitus without complications; I10 Essential (primary) hypertension; E03.9 Hypothyroidism, unspecified; K21.9 Gastro-esophageal reflux disease without esophagitis; J44.9 Chronic obstructive pulmonary disease, unspecified; G47.30 Sleep apnea, unspecified; Z79.82 Long term (current) use of aspirin; Z79.84 Long term (current) use of oral hypoglycemic drugs; Z79.899 Other long term (current) drug therapy
CPT/HCPCS: 82947; J2704; J7120

== ENCOUNTER 2024-12-13 03:22 | Day surgery (SDC) | payer MEDICARE, OTHER ==
[~2024-12-13 03:22] MED LIST changes: -Lactated Ringer's 1,000 ML IV SCH
[2024-12-13] MEDS ORDERED: Omalizumab 150 MG Syringe SC SCH (07:10)
[2024-12-13 11:08] VITALS: BP 122/71
== END 2024-12-13 11:18 | disposition home or self-care (01) ==
LOC: ATC 03:22
DX: J45.50 Severe persistent asthma, uncomplicated (principal); J44.89 Other specified chronic obstructive pulmonary disease; I10 Essential (primary) hypertension; E11.9 Type 2 diabetes mellitus without complications; E78.5 Hyperlipidemia, unspecified; G47.33 Obstructive sleep apnea (adult) (pediatric); Z87.891 Personal history of nicotine dependence; Z88.2 Allergy status to sulfonamides; Z88.1 Allergy status to other antibiotic agents; Z88.8 Allergy status to other drugs, medicaments and biological substances; Z79.82 Long term (current) use of aspirin; Z79.02 Long term (current) use of antithrombotics/antiplatelets; Z79.899 Other long term (current) drug therapy
CPT/HCPCS: 96372; J2357

== ENCOUNTER 2024-12-27 03:04 | Day surgery (SDC) | payer MEDICARE, OTHER ==
[2024-12-27] MEDS ORDERED: Omalizumab 150 MG Syringe SC SCH (06:45)
[2024-12-27 10:55] VITALS: BP 135/73
== END 2024-12-27 11:01 | disposition home or self-care (01) ==
LOC: ATC 03:04
DX: J45.50 Severe persistent asthma, uncomplicated (principal); J44.89 Other specified chronic obstructive pulmonary disease; G47.33 Obstructive sleep apnea (adult) (pediatric); I10 Essential (primary) hypertension; E78.5 Hyperlipidemia, unspecified; E11.9 Type 2 diabetes mellitus without complications; Z87.891 Personal history of nicotine dependence; Z79.82 Long term (current) use of aspirin; Z79.84 Long term (current) use of oral hypoglycemic drugs; Z79.899 Other long term (current) drug therapy
CPT/HCPCS: 96372; J2357

== ENCOUNTER 2025-01-10 02:35 | Day surgery (SDC) | payer MEDICARE, OTHER ==
[2025-01-10] MEDS ORDERED: Omalizumab 150 MG Syringe SC SCH (07:05)
== END 2025-01-10 11:18 | disposition home or self-care (01) ==
LOC: ATC 02:35
DX: J45.50 Severe persistent asthma, uncomplicated (principal); J44.9 Chronic obstructive pulmonary disease, unspecified; I10 Essential (primary) hypertension; E11.9 Type 2 diabetes mellitus without complications; E78.5 Hyperlipidemia, unspecified; G47.33 Obstructive sleep apnea (adult) (pediatric); Z87.891 Personal history of nicotine dependence; Z79.82 Long term (current) use of aspirin; Z79.02 Long term (current) use of antithrombotics/antiplatelets; Z79.899 Other long term (current) drug therapy; Z88.2 Allergy status to sulfonamides; Z88.1 Allergy status to other antibiotic agents; Z88.8 Allergy status to other drugs, medicaments and biological substances
CPT/HCPCS: 96372; J2357

== ENCOUNTER 2025-01-24 05:10 | Day surgery (SDC) | payer MEDICARE, OTHER ==
[2025-01-24] MEDS ORDERED: Omalizumab 150 MG Syringe SC SCH (07:05)
[2025-01-24 10:53] VITALS: BP 131/79
== END 2025-01-24 10:59 | disposition home or self-care (01) ==
LOC: ATC 05:10
DX: J45.50 Severe persistent asthma, uncomplicated (principal); J44.89 Other specified chronic obstructive pulmonary disease; E11.9 Type 2 diabetes mellitus without complications; E78.5 Hyperlipidemia, unspecified; G47.33 Obstructive sleep apnea (adult) (pediatric); F17.210 Nicotine dependence, cigarettes, uncomplicated; Z79.899 Other long term (current) drug therapy; Z79.82 Long term (current) use of aspirin
CPT/HCPCS: 96372; J2357

== ENCOUNTER 2025-02-07 02:56 | Day surgery (SDC) | payer MEDICARE, OTHER ==
[2025-02-07] MEDS ORDERED: Omalizumab 150 MG Syringe SC SCH (06:50)
[2025-02-07 10:49] VITALS: BP 155/79
== END 2025-02-07 11:00 | disposition home or self-care (01) ==
LOC: ATC 02:56
DX: J45.50 Severe persistent asthma, uncomplicated (principal); E78.5 Hyperlipidemia, unspecified; J44.9 Chronic obstructive pulmonary disease, unspecified; E11.9 Type 2 diabetes mellitus without complications; G47.33 Obstructive sleep apnea (adult) (pediatric); Z79.899 Other long term (current) drug therapy; Z79.84 Long term (current) use of oral hypoglycemic drugs; Z88.2 Allergy status to sulfonamides; Z87.891 Personal history of nicotine dependence; Z99.89 Dependence on other enabling machines and devices
CPT/HCPCS: 96372; J2357

== ENCOUNTER 2025-02-21 00:32 | Day surgery (SDC) | payer MEDICARE, OTHER ==
[2025-02-21] MEDS ORDERED: Omalizumab 150 MG Syringe SC SCH (06:55)
[2025-02-21 11:20] VITALS: BP 130/76
== END 2025-02-21 11:15 | disposition home or self-care (01) ==
LOC: ATC 00:32
DX: J45.50 Severe persistent asthma, uncomplicated (principal); J44.89 Other specified chronic obstructive pulmonary disease; G47.33 Obstructive sleep apnea (adult) (pediatric); M19.90 Unspecified osteoarthritis, unspecified site; E11.9 Type 2 diabetes mellitus without complications; I10 Essential (primary) hypertension; E78.5 Hyperlipidemia, unspecified; Z87.891 Personal history of nicotine dependence; Z79.02 Long term (current) use of antithrombotics/antiplatelets; Z79.82 Long term (current) use of aspirin; Z79.84 Long term (current) use of oral hypoglycemic drugs; Z79.890 Hormone replacement therapy; Z79.899 Other long term (current) drug therapy; Z88.2 Allergy status to sulfonamides; Z88.8 Allergy status to other drugs, medicaments and biological substances
CPT/HCPCS: 96372; J2357

== ENCOUNTER 2025-03-07 04:29 | Day surgery (SDC) | payer MEDICARE, OTHER ==
[2025-03-07] MEDS ORDERED: Omalizumab 150 MG Syringe SC SCH (07:00)
[2025-03-07 10:20] VITALS: BP 134/74
== END 2025-03-07 10:25 | disposition home or self-care (01) ==
LOC: ATC 04:29
DX: J45.50 Severe persistent asthma, uncomplicated (principal); E11.9 Type 2 diabetes mellitus without complications; E78.5 Hyperlipidemia, unspecified; J44.9 Chronic obstructive pulmonary disease, unspecified; Z79.82 Long term (current) use of aspirin; Z79.899 Other long term (current) drug therapy; Z79.84 Long term (current) use of oral hypoglycemic drugs; Z88.2 Allergy status to sulfonamides; Z88.8 Allergy status to other drugs, medicaments and biological substances
CPT/HCPCS: 96372; J2357

== ENCOUNTER 2025-04-04 03:04 | Day surgery (SDC) | payer MEDICARE, OTHER ==
[2025-04-04] MEDS ORDERED: Omalizumab 150 MG Syringe SC SCH (07:05)
[2025-04-04 11:10] VITALS: BP 138/62
== END 2025-04-04 10:47 | disposition home or self-care (01) ==
LOC: ATC 03:04
DX: J45.50 Severe persistent asthma, uncomplicated (principal); E11.9 Type 2 diabetes mellitus without complications; I10 Essential (primary) hypertension; Z87.891 Personal history of nicotine dependence
CPT/HCPCS: 96372; J2357

== ENCOUNTER 2025-04-18 01:16 | Day surgery (SDC) | payer MEDICARE, OTHER ==
[2025-04-18] MEDS ORDERED: Omalizumab 150 MG Syringe SC SCH (06:50)
[2025-04-18 10:21] VITALS: BP 122/68
== END 2025-04-18 10:23 | disposition home or self-care (01) ==
LOC: ATC 01:16
DX: J45.50 Severe persistent asthma, uncomplicated (principal); J44.9 Chronic obstructive pulmonary disease, unspecified; G47.33 Obstructive sleep apnea (adult) (pediatric); E11.9 Type 2 diabetes mellitus without complications; E03.9 Hypothyroidism, unspecified; E78.5 Hyperlipidemia, unspecified; I10 Essential (primary) hypertension; Z87.891 Personal history of nicotine dependence; Z79.51 Long term (current) use of inhaled steroids; Z79.82 Long term (current) use of aspirin; Z79.84 Long term (current) use of oral hypoglycemic drugs; Z79.85 Long-term (current) use of injectable non-insulin antidiabetic drugs; Z79.890 Hormone replacement therapy; Z79.899 Other long term (current) drug therapy; Z88.1 Allergy status to other antibiotic agents; Z88.2 Allergy status to sulfonamides; Z88.8 Allergy status to other drugs, medicaments and biological substances; Z90.710 Acquired absence of both cervix and uterus
CPT/HCPCS: 96372; J2357

== ENCOUNTER 2025-05-02 01:37 | Day surgery (SDC) | payer MEDICARE, OTHER ==
[2025-05-02] MEDS ORDERED: Omalizumab 150 MG Syringe SC SCH (06:55)
[2025-05-02 10:18] VITALS: BP 118/62
== END 2025-05-02 10:22 | disposition home or self-care (01) ==
LOC: ATC 01:37
DX: J45.50 Severe persistent asthma, uncomplicated (principal); J44.89 Other specified chronic obstructive pulmonary disease; I10 Essential (primary) hypertension; E11.9 Type 2 diabetes mellitus without complications; E78.5 Hyperlipidemia, unspecified; Z79.82 Long term (current) use of aspirin; Z79.84 Long term (current) use of oral hypoglycemic drugs; Z79.890 Hormone replacement therapy; Z79.899 Other long term (current) drug therapy; Z88.2 Allergy status to sulfonamides; Z87.891 Personal history of nicotine dependence
CPT/HCPCS: 96372; J2357

== ENCOUNTER 2025-05-31 04:26 | Day surgery (SDC) | payer MEDICARE, OTHER ==
[2025-05-31] MEDS ORDERED: Omalizumab 150 MG Syringe SC SCH (06:40)
[2025-05-31 09:25] VITALS: BP 131/75
== END 2025-05-31 09:28 | disposition home or self-care (01) ==
LOC: ATC 04:26
DX: J45.50 Severe persistent asthma, uncomplicated (principal); J44.89 Other specified chronic obstructive pulmonary disease; G47.33 Obstructive sleep apnea (adult) (pediatric); M19.90 Unspecified osteoarthritis, unspecified site; E11.9 Type 2 diabetes mellitus without complications; I10 Essential (primary) hypertension; E78.5 Hyperlipidemia, unspecified; Z87.891 Personal history of nicotine dependence; Z79.02 Long term (current) use of antithrombotics/antiplatelets; Z79.82 Long term (current) use of aspirin; Z79.84 Long term (current) use of oral hypoglycemic drugs; Z79.890 Hormone replacement therapy; Z88.2 Allergy status to sulfonamides; Z88.8 Allergy status to other drugs, medicaments and biological substances; E03.9 Hypothyroidism, unspecified
CPT/HCPCS: 36415; 80053; 80061; 82043; 83036; 84443; 85025; 96372; J2357

== ENCOUNTER 2025-06-13 02:19 | Day surgery (SDC) | payer MEDICARE, OTHER ==
[2025-06-13] MEDS ORDERED: Omalizumab 150 MG Syringe SC SCH (07:15)
[2025-06-13 10:43] VITALS: BP 122/81
== END 2025-06-13 10:50 | disposition home or self-care (01) ==
LOC: ATC 02:19
DX: J45.50 Severe persistent asthma, uncomplicated (principal); J44.9 Chronic obstructive pulmonary disease, unspecified; G47.33 Obstructive sleep apnea (adult) (pediatric); I10 Essential (primary) hypertension; E11.9 Type 2 diabetes mellitus without complications; Z87.891 Personal history of nicotine dependence; Z79.82 Long term (current) use of aspirin; Z79.899 Other long term (current) drug therapy; Z88.1 Allergy status to other antibiotic agents; Z88.2 Allergy status to sulfonamides; Z88.8 Allergy status to other drugs, medicaments and biological substances
CPT/HCPCS: 96372; J2357

== ENCOUNTER 2025-07-11 01:11 | Day surgery (SDC) | payer MEDICARE, OTHER ==
[2025-07-11] MEDS ORDERED: Omalizumab 150 MG Syringe SC SCH (07:00)
[2025-07-11 11:02] VITALS: BP 134/64
== END 2025-07-11 11:07 | disposition home or self-care (01) ==
LOC: ATC 01:11
DX: J45.50 Severe persistent asthma, uncomplicated (principal); J44.89 Other specified chronic obstructive pulmonary disease; I10 Essential (primary) hypertension; E11.9 Type 2 diabetes mellitus without complications; Z79.82 Long term (current) use of aspirin; Z79.890 Hormone replacement therapy; Z79.899 Other long term (current) drug therapy; Z88.2 Allergy status to sulfonamides; Z87.891 Personal history of nicotine dependence
CPT/HCPCS: J2357

== ENCOUNTER 2025-07-25 00:45 | Day surgery (SDC) | payer MEDICARE, OTHER ==
[2025-07-25] MEDS ORDERED: Omalizumab 150 MG Syringe SC SCH ×2 (07:10→19:00)
[2025-07-25 14:30] VITALS: BP 127/74
== END 2025-07-25 14:30 | disposition home or self-care (01) ==
LOC: ATC 00:45
DX: J45.50 Severe persistent asthma, uncomplicated (principal); J44.89 Other specified chronic obstructive pulmonary disease; I10 Essential (primary) hypertension; E78.5 Hyperlipidemia, unspecified; E07.9 Disorder of thyroid, unspecified; E11.9 Type 2 diabetes mellitus without complications; Z88.2 Allergy status to sulfonamides; Z88.8 Allergy status to other drugs, medicaments and biological substances; Z87.891 Personal history of nicotine dependence; Z79.84 Long term (current) use of oral hypoglycemic drugs; Z79.890 Hormone replacement therapy; Z79.899 Other long term (current) drug therapy
CPT/HCPCS: 96372; J2357

== ENCOUNTER 2025-09-13 00:36 | Day surgery (SDC) | payer MEDICARE, OTHER ==
[2025-09-13] MEDS ORDERED: Omalizumab 150 MG Syringe SC SCH (06:00)
[2025-09-13 11:07] VITALS: BP 138/85
== END 2025-09-13 11:14 | disposition home or self-care (01) ==
LOC: ATC 00:36
DX: J45.50 Severe persistent asthma, uncomplicated (principal); J44.89 Other specified chronic obstructive pulmonary disease; G47.33 Obstructive sleep apnea (adult) (pediatric); J43.9 Emphysema, unspecified; E11.9 Type 2 diabetes mellitus without complications; I10 Essential (primary) hypertension; E78.5 Hyperlipidemia, unspecified; E07.9 Disorder of thyroid, unspecified; Z87.891 Personal history of nicotine dependence; Z79.82 Long term (current) use of aspirin; Z79.02 Long term (current) use of antithrombotics/antiplatelets; Z79.84 Long term (current) use of oral hypoglycemic drugs; Z79.890 Hormone replacement therapy; Z79.51 Long term (current) use of inhaled steroids; Z79.899 Other long term (current) drug therapy; Z88.2 Allergy status to sulfonamides; Z88.1 Allergy status to other antibiotic agents; Z88.8 Allergy status to other drugs, medicaments and biological substances; Z90.710 Acquired absence of both cervix and uterus
CPT/HCPCS: 96372; J2357